=== PATIENT | male | born 1985 | race Caucasian/White ===

== ENCOUNTER 2017-08-21 14:36 | Inpatient (IN) ==
[2017-08-21] MEDS ORDERED: 0.9 % Sodium Chloride 1,000 ML IVC ONE ×3 (14:48→15:54)
--- NOTE | 2017-08-21 15:05 | Emergency Department Note ---
Disposition Clinical Impression: Cellulitis of scrotum Disposition: Admitted As Inpatient Condition: Good Male Urogenital HPI - General Chief complaint: ED Urogenital-Male Stated complaint: Left scrotal abscess and cellulitis Time Seen by Provider: 08/21/17 14:47 Source: patient Mode of arrival: ambulatory Limitations: no limitations Nursing Notes Reviewed: Yes Vital Signs Reviewed: Yes - History of Present Illness HPI Narrative: Patient presents to the ED with the chief complaint of an abscess on his scrotum. Patient has diabetes and states about 4 days ago he noticed a lump on his scrotum. States that he took one of his diabetic lancets and poked the area. 2 days later he noticed fairly significant increase in pain, swelling, redness and drainage. No fever, chills, chest pain, shortness of breath, abdominal pain, nausea, vomiting or diarrhea. States it is spreading down towards his buttock. Went to urgent care today and was told to come here for urology follow-up. Potentially. Patient states it is difficult for him to sit and move his leg. Otherwise states he feels fine. Had one of these a few years ago that did require drainage. - Related Data Home Medications Medication Instructions Recorded Confirmed Albuterol Sulfate [Proair Hfa] 1 - 2 puff IH Q6H PRN 10/13/16 08/21/17 Furosemide [Lasix] 20 mg PO QAM 10/13/16 08/21/17 Ibuprofen [Motrin] 800 mg PO Q8HR PRN 10/13/16 08/21/17 Insulin ASPART [NovoLOG] 2 - 10 unit SQ TIDWM 10/13/16 08/21/17 Insulin Glargine [Lantus] 160 unit SQ DAILY 10/13/16 08/21/17 Lisinopril-HCTZ 20-12.5 [Prinzide 1 tab PO QAM 10/13/16 08/21/17 20-12.5] Meloxicam [Mobic] 7.5 mg PO DAILY 10/13/16 08/21/17 Montelukast [Singulair] 10 mg PO DAILY 10/13/16 08/21/17 Cetirizine HCl [Zyrtec] 10 mg PO DAILY 11/09/16 08/21/17 Allergies Allergy/AdvReac Type Severity Reaction Status Date / Time Amoxicillin Allergy Hives Verified 08/21/17 14:41 Penicillins Allergy Hives Verified 08/21/17 14:41 Sulfa (Sulfonamide Allergy Hives Verified 08/21/17 14:41 Antibiotics) All systems ED: reviewed and negative except as stated. Constitutional: Denies: fever Cardiovascular: Denies: chest pain Respiratory: Denies: dyspnea Gastrointestinal: Denies: abdominal pain, vomiting Genitourinary: Reports: as per HPI. Denies: dysuria Musculoskeletal: Denies: back pain Integumentary: Reports: rash Neurological: Denies: headache Past Medical History - Past Medical History Attestation: Yes The following information was validated with the patient. Source: patient Medical history: Reports: asthma, diabetes, hyperlipidemia, hypertension Psychiatric history: Reports: no psych history - Social History Smoking Status: Current every day smoker Smokeless Tobacco Status: No Alcohol use: Reports: none Drug use: Reports: none Physical Exam - General Limitations: no limitations General appearance: alert, in no apparent distress - Chest Chest inspection: Present: normal inspection, symmetric chest wall rise - Respiratory Respiratory exam: Present: normal lung sounds bilaterally - Cardiovascular Cardiovascular exam: Present: regular rate, normal rhythm, normal heart sounds - Abdominal Exam Abdominal Exam: Present: soft, Non-Tender, normal bowel sounds - Male exam: Present: normal testicular lie, other (Patient has a large fairly well- circumscribed abscess to his left scrotum extending down towards his perineum. There is a centralized area of ulceration with no active drainage. Indurated with no fluctuance. Surrounding cellulitis. No signs of ischemia.). Absent: perineal induration, testicular tenderness - Neurological Exam Neurological exam: Present: alert, oriented X3, normal gait - Psychiatric Psychiatric exam: Present: normal affect, normal mood Course Course Narrative: Patient presenting with a left scrotal abscess 4 days. Patient slightly tachycardic sent over from urgent care. Low concern over Yasir's gangrene. However, we will obtain labs and CT pelvis with IV contrast. - Reevaluation(s) Reevaluation #1: Has a cellulitis with no obvious abscess. No free gas. Consult with urology and they are aware of the patient. Agreed with antibiotic choice. Vital Signs Temperature 98.3 F 08/21/17 14:41 Pulse Rate 118 08/21/17 14:41 Respiratory Rate 20 08/21/17 14:41 Blood Pressure 141/88 08/21/17 14:41 O2 Sat by Pulse Oximetry 96 08/21/17 14:41 Temperature 98.3 F 08/21/17 14:41 Pulse Rate 87 08/21/17 16:56 Respiratory Rate 18 08/21/17 17:50 Blood Pressure 136/91 08/21/17 17:50 O2 Sat by Pulse Oximetry 98 08/21/17 16:56 Oxygen Delivery Oxygen Delivery Room Air Urogenital-Male - Lab Data Result diagrams: 08/21/17 15:01 08/21/17 15:01 Lab Results 08/21/17 08/21/17 08/21/17 Range/Units 15:01 15:01 15:01 WBC 12.6 H (4.3-11.1) K/mcL RBC 4.68 (4.19-5.50) M/mcL Hgb 13.6 (12.9-16.9) g/dL Hct 39.2 (37.5-50.1) % MCV 83.8 (83.0-100.0) fL MCH 29.1 (28.0-33.3) pg MCHC 34.7 (31.6-35.5) g/dL RDW 11.8 (11.5-14.5) % Plt Count 383 (140-400) K/mcL MPV 9.5 (9.4-12.4) fL Immature Gran % 0.5 (0-4) % Seg Neutrophils % 68.9 % Lymphocytes % 20.0 % Monocytes % 7.0 % Eosinophils % 3.0 % Basophils % 0.6 % Neutrophils # 8.7 (1.6-8.9) K/mcL Lymphocytes # 2.5 (0.6-4.6) K/mcL Monocytes # 0.9 (0.0-1.3) K/mcL Eosinophils # 0.4 (0.0-0.6) K/mcL Basophils # 0.1 (0.0-0.2) K/mcL Sodium 135 L (136-145) mEq/L Potassium 4.1 (3.5-4.5) mEq/L Chloride 99 (98-109) mEq/L Carbon Dioxide 24 (19-29) mEq/L BUN 18 (8-26) mg/dL Creatinine 1.17 (0.72-1.25) mg/dL Est GFR ( Amer) > 60 (> 60) Est GFR (Non-Af Amer) > 60 (> 60) BUN/Creatinine Ratio 15 (6-26) Glucose 468 H (70-99) mg/dL Calculated Osmolality 302 H (280-300) Lactic Acid 3.4 H (0.5-2.2) mmol/L Calcium 9.5 (8.6-10.8) mg/dL C-Reactive Protein 49 H (Less than 5) mg/L Ur Specimen Adequacy Urine Color (Yellow) Urine Clarity (Clear) Urine pH (5.0-8.0) pH Units Ur Specific [place] (1.010-1.025) Urine Protein (Neg-Trace) mg/dL Urine Glucose (UA) (Normal) mg/dL Urine Ketones (Negative) mg/dL Urine Blood (Negative) Urine Nitrite (Negative) Urine Bilirubin (Negative) Urine Urobilinogen (Normal) mg/dL Ur Leukocyte Esterase (Negative) Urine Microscopic RBC (0-3) per hpf Urine Microscopic WBC (0-3) per hpf Ur Squamous Epith Cells (None-Few) per lpf Urine Bacteria (None-Few) per hpf Hyaline Casts (None-Few) per lpf Ur Culture Indicated? (NO) 08/21/17 Range/Units 15:20 WBC (4.3-11.1) K/mcL RBC (4.19-5.50) M/mcL Hgb (12.9-16.9) g/dL Hct (37.5-50.1) % MCV (83.0-100.0) fL MCH (28.0-33.3) pg MCHC (31.6-35.5) g/dL RDW (11.5-14.5) % Plt Count (140-400) K/mcL MPV (9.4-12.4) fL Immature Gran % (0-4) % Seg Neutrophils % % Lymphocytes % % Monocytes % % Eosinophils % % Basophils % % Neutrophils # (1.6-8.9) K/mcL Lymphocytes # (0.6-4.6) K/mcL Monocytes # (0.0-1.3) K/mcL Eosinophils # (0.0-0.6) K/mcL Basophils # (0.0-0.2) K/mcL Sodium (136-145) mEq/L Potassium (3.5-4.5) mEq/L Chloride (98-109) mEq/L Carbon Dioxide (19-29) mEq/L BUN (8-26) mg/dL Creatinine (0.72-1.25) mg/dL Est GFR ( Amer) (> 60) Est GFR (Non-Af Amer) (> 60) BUN/Creatinine Ratio (6-26) Glucose (70-99) mg/dL Calculated Osmolality (280-300) Lactic Acid (0.5-2.2) mmol/L Calcium (8.6-10.8) mg/dL C-Reactive Protein (Less than 5) mg/L Ur Specimen Adequacy See below A Urine Color Yellow (Yellow) Urine Clarity Clear (Clear) Urine pH 6.0 (5.0-8.0) pH Units Ur Specific [place] > 1.030 H (1.010-1.025) Urine Protein Trace (Neg-Trace) mg/dL Urine Glucose (UA) >=1000 H (Normal) mg/dL Urine Ketones Trace H (Negative) mg/dL Urine Blood Negative (Negative) Urine Nitrite Negative (Negative) Urine Bilirubin Negative (Negative) Urine Urobilinogen Normal (Normal) mg/dL Ur Leukocyte Esterase Negative (Negative) Urine Microscopic RBC 0-3 (0-3) per hpf Urine Microscopic WBC 0-3 (0-3) per hpf Ur Squamous Epith Cells None Seen (None-Few) per lpf Urine Bacteria None Seen (None-Few) per hpf Hyaline Casts None Seen (None-Few) per lpf Ur Culture Indicated? NO (NO)
[2017-08-21 15:08] LABS: Basophils # 0.1 K/mcL (0.0-0.2); Basophils % 0.6 %; Eosinophils # 0.4 K/mcL (0.0-0.6); Hematocrit 39.2 % (37.5-50.1); Hemoglobin 13.6 g/dL (12.9-16.9); Immature Granulocytes % 0.5 % (0-4); Lymphocytes # 2.5 K/mcL (0.6-4.6); Mean Corpuscular HGB Conc 34.7 g/dL (31.6-35.5); Mean Corpuscular Hemoglobin 29.1 pg (28.0-33.3); Mean Corpuscular Volume 83.8 fL (83.0-100.0); Mean Platelet Volume 9.5 fL (9.4-12.4); Monocytes # 0.9 K/mcL (0.0-1.3); Neutrophils # 8.7 K/mcL (1.6-8.9); Platelet Count 383 K/mcL (140-400); Red Blood Count 4.68 M/mcL (4.19-5.50); Red Cell Distribution Width 11.8 % (11.5-14.5); Segmented Neutrophils % 68.9 %
[2017-08-21 15:20] LABS: BUN/Creatinine Ratio 15 (6-26); Blood Urea Nitrogen 18 mg/dL (8-26); C-Reactive Protein 49 mg/L (Less than 5); Calcium 9.5 mg/dL (8.6-10.8); Carbon Dioxide 24 mEq/L (19-29); Chloride 99 mEq/L (98-109); Glucose 468 mg/dL (70-99); Osmolality,Calculated 302 (280-300); Potassium 4.1 mEq/L (3.5-4.5); Sodium 135 mEq/L (136-145); eGFR For African Americans > 60 (> 60); eGFR For Non-African Americans > 60 (> 60)
--- NOTE | 2017-08-21 15:39 | Emergency Department Note ---
START Narrative - START START: I examined this patient and my medical decision-making was reviewed with the Resident Physician. I agree with the documented findings, disposition and treatment plan as described except to the extent set forth below. +scrotal abscess. labs, ct, eval I and D, antibiotics does not appear septic no signs of rectal abscess. isolated to scrotum vss afebrile
[2017-08-21 15:40] LABS: Bilirubin,Urine Negative (Negative); Blood,Urine Negative (Negative); Clarity,Urine Clear (Clear); Color,Urine Yellow (Yellow); Glucose,Urine (UA) >=1000 mg/dL (Normal); Ketones,Urine Trace mg/dL (Negative); Leukocyte Esterase,Urine Negative (Negative); Nitrite,Urine Negative (Negative); Protein,Urine Trace mg/dL (Neg-Trace); Specific Gravity,Urine > 1.030 (1.010-1.025); Urobilinogen,Urine Normal (Normal)
[2017-08-21 15:46] LABS: Bacteria,Urine None Seen per hpf (None-Few); Hyaline Casts,Urine None Seen per lpf (None-Few); RBC,Urine 0-3 per hpf (0-3); Squamous Epithelial Cell,Urine None Seen per lpf (None-Few); WBC,Urine 0-3 per hpf (0-3)
[2017-08-21] MEDS ORDERED: Insulin Human Regular 10 UNIT in 0.9 % Sodium Chloride 10 ML IV ONE (16:25)
[2017-08-21] MEDS ORDERED: Vancomycin 1,750 MG in D5% in Water 500 ML IVPB ONE (17:01)
[2017-08-21] MEDS ORDERED: Levofloxacin 750 MG/150 ML 750 MG/150 ML BAG IVPB ONE (17:03)
[2017-08-21] MEDS ORDERED: *HR* Dextrose 50 % in Water (Syg) 50 ML SYRINGE IVP PRN (20:35)
[2017-08-21] MEDS ORDERED: D5% in Water 1,000 ML IVC PRN (20:35)
[2017-08-21] MEDS ORDERED: Dextrose Gel 15 GM PO PRN ×2 (20:35)
[2017-08-21] MEDS ORDERED: Naloxone 0.4 MG/ML INJ IVP PRN (21:35)
[2017-08-21] MEDS ORDERED: Vancomycin 1,750 MG in D5% in Water 250 ML IVPB SCH (22:00)
--- NOTE | 2017-08-21 22:06 | Internal Med History&Physical ---
<GiangentrycoreenTao medina - Last Filed: 08/21/17 23:22> Date of Encounter: 08/21/17 Time of Encounter: 20:30 Assessment and Plan (1) Sepsis Current visit: Yes Status: Acute Patient presents with SIRS criteria of WBC of 12.6 and HR of 98 bpm. Patient receiving boluses of IV 0.9 NS to be followed by 125 mL/HR. Suspected infection source is cellulitis of left scrotum. Lactic acid 3.4 on admission. Will order lactic acid stat + timed. Blood cultures x2. Wound cultures ordered. IVPB vancomycin with pharmacy dosing and Zosyn 3.375 gm Q8 ordered for infection coverage for cellulitis. Creatinine and platelets WNL. Bilirubin ordered. Patient is currently afebrile. F/u labs ordered. Patient placed on continuous cardiac telemetry and supplemental O2. Will monitor patient for signs of increasing infection, cardiac, and/or respiratory distress. Mr. Thacker is at high risk for sepsis and further morbidity based on current symptoms, cellulitis , history and risk factors and will be placed as inpatient. Qualifiers: Sepsis type: sepsis due to unspecified organism Qualified Code(s): A41.9 - Sepsis, unspecified organism (2) Cellulitis of scrotum Current visit: Yes Status: Acute Patient reports acute pain and swelling in the left scrotal area for the past 4 days. Patient attempted to open wound 4 days ago and squeeze contents but swelling and pain increased two days later. CT of the abdomen and pelvis today shows findings compatible with cellulitis involving the left hemiscrotum and inferior perineum. No discrete rim-enhancing collection to suggest abscess. No evidence of subcutaneous emphysema. Ultrasound of the scrotum today shows no sonographic evidence of testicular torsion. Slight hypervascularity of the left epididymis. Correlation for acute inflammation is recommended. Subcutaneous edema and skin thickening of the left scrotum. No focal subcutaneous fluid collection. Wound culture ordered. Wound Care consult and daily wound care ordered. IVPB vancomycin with pharmacy dosing and Zosyn 3.375 Q8 for infection coverage. Patient to be monitored for allergic rxn to Zosyn d/ t allergy w/hives with penicillin. Benadryl 25 mg ordered. Will monitor f/u labs. (3) Hyponatremia Current visit: Yes Status: Acute Patient presents with sodium level of 135 on admission. Patient receiving IV 0.9 NS fluids per sepsis protocol which should correct hyponatremia. Will monitor sodium level in f/u labs. (4) Diabetes Current visit: Yes Status: Chronic Hx of chronic diabetes controlled with insulin. Patient states that he takes 160 units HS but has not had his insulin for 4 days due to lack of insurance. Pharmacy recommendation was 80 mg BID so patient's BG doesn't bottom out. Will administer 80 mg BID and add high-dose correction insulin sliding scale with hypoglycemic protocol. Associate Professor Of Theology consult ordered. A1c in a.m. labs. Patient reports having seizures in past due to hypoglycemia. Seizure precautions ordered. Will monitor patient closely. Qualifiers: Diabetes mellitus type: type 2 Diabetes mellitus complication status: with unspecified complications Diabetes mellitus shelter insulin use: with shelter use Qualified Code(s): E11.8 - Type 2 diabetes mellitus with unspecified complications; Z79.4 - [facility] (current) use of insulin; Z79.4 - [facility] ( current) use of insulin; Z79.4 - rat exterminator (current) use of insulin; Z79.4 - rat exterminator (current) use of insulin (5) Asthma Current visit: Yes Status: Chronic Hx of chronic asthma that is currently stable. We will continue patient's Singulair and Pro Air. Qualifiers: Asthma severity: mild Asthma persistence: intermittent Asthma complication type: uncomplicated Qualified Code(s): J45.20 - Mild intermittent asthma, uncomplicated (6) HTN (hypertension) Current visit: Yes Status: Chronic Hx of chronic HTN. Monitor patient and VS. Will continue lisinopril HCTZ. Qualifiers: Hypertension type: essential hypertension Qualified Code(s): I10 - Essential (primary) hypertension (7) HLD (hyperlipidemia) Current visit: Yes Status: Chronic Hx of chronic HLD. Lipid panel ordered in a.m. labs. Patient does not currently take a statin. Will consider adding Lipitor based on lipid panel results. Qualifiers: Hyperlipidemia type: pure hypercholesterolemia Qualified Code(s): E78.00 - Pure hypercholesterolemia, unspecified; E78.0 - Pure hypercholesterolemia (8) DVT prophylaxis Current visit: Yes Status: Acute Lovenox 40 mg SQ 0600 for DVT prophylaxis. Internal Medicine - H&P: HPI Chief complaint: Scrotal swelling Admitted From: Emergency Dept Plans for Post Hospital Care: Home History of present illness: Mr. Thacker is a 32 year old male with medical history of asthma, diabetes controlled by insulin, hyperlipidemia, hypertension, and GERD presents from the ED with chief complaint of scrotal swelling on the left side for the past 4 days. Patient reports he noticed a lump partially 4 days ago on his scrotum and opened the wound with a diabetic lancet. 2 days later the wound became larger and more painful. He states it began spreading down towards his perineum. Went to urgent care where he was directed to come to the ED. States he had one several years ago that required drainage. Patient denies recent illness, chest pain, palpitations, fever, chills, vomiting, nausea, headache, changes in vision, abdominal pain, numbness, tingling, neurological deficits, weakness, lightheadedness, dizziness, unusual bleeding, syncope, or syncope. Past Med Surg Social Fam HX - Past Medical History Source: patient, old records reviewed, obtained from family Medical history: asthma, diabetes, GERD, hyperlipidemia, hypertension Psychiatric history: no psych history - Past Surgical History Surgical History: other (Bilateral laser eye surgery) - Social History Smoking Status: Former smoker Packs per day: 1 PPD - Reports quitting 6 months ago Smokeless Tobacco Status: No Alcohol use: none Drug use: none Current living situation: Home, With Family Activity Level: Independent ambulation Recent Out of Country Travel Within the Last 8 Weeks: No Exposure or Possible Exposure to Illness During Travel: No - Family History Father Race: Family Member Ethnicity: Non- Living Status: Still Living Hx Family Cancer: Yes (Kidney) Mother Race: Family Member Ethnicity: Non- Living Status: Age at : 54 Cause of : [place] Hx Family Cardiac Disorders: Yes ([place], CAD, HTN) Brother Race: Family Member Ethnicity: Non- Living Status: Still Living Hx Family Endocrine Disorder: Yes (DM) Internal Medicine - H&P: Meds Albuterol Sulfate [Proair Hfa] 1 - 2 puff IH Q6H PRN 10/13/16 [History] Furosemide [Lasix] 20 mg PO QAM 10/13/16 [History] Ibuprofen [Motrin] 800 mg PO Q8HR PRN 10/13/16 [History] Insulin ASPART [NovoLOG] 2 - 10 unit SQ TIDWM 10/13/16 [History] Insulin Glargine [Lantus] 160 unit SQ DAILY 10/13/16 [History] Lisinopril-HCTZ 20-12.5 [Prinzide 20-12.5] 1 tab PO QAM 10/13/16 [History] Meloxicam [Mobic] 7.5 mg PO DAILY 10/13/16 [History] Montelukast [Singulair] 10 mg PO DAILY 10/13/16 [History] Cetirizine HCl [Zyrtec] 10 mg PO DAILY 11/09/16 [History] 3 Allergy/AdvReac Type Severity Reaction Status Date / Time Amoxicillin Allergy Hives Verified 08/21/17 14:41 Penicillins Allergy Hives Verified 08/21/17 14:41 Sulfa (Sulfonamide Allergy Hives Verified 08/21/17 14:41 Antibiotics) All Systems PM: A 10-system review of systems was performed and is negative for pertinent findings except as documented above in the HPI. - Constitutional Constitutional: no chills, no fever(s), no night sweats - EENT Eyes: no change in vision, no discharge, no pain, no photophobia Ears: no ear discharge, no ear pain, no tinnitus Nose, mouth and throat: no dysphagia, no nasal discharge, no neck pain, no sore throat - Breasts Breasts: as per HPI - Cardiovascular Cardiovascular ROS IM: no chest pain, no diaphoresis, no dyspnea, no lightheadedness, no palpitations, no syncope - Respiratory Respiratory: no cough, no dyspnea, no wheezing, no excessive phlegm production - Gastrointestinal Gastrointestinal: as per HPI, heartburn - Genitourinary Genitourinary ROS male: as per HPI, scrotal swelling - Musculoskeletal Musculoskeletal ROS IM: no numbness, no tingling - Integumentary Integumentary IM: as per HPI, sores (Left scrotal area), no rash, no unusual bruising - Neurological Neurological ROS: no confusion, no convulsions, no focal weakness, no numbness, no tingling, no tremor(s) - Psychiatric Psychiatric: as per HPI - Endocrine Endocrine IM: as per HPI - Hematologic/Lymphatic Hematologic/Lymphatic: no easy bruising - Allergic/Immunologic Allergic/Immunologic: as per HPI - Constitutional Vitals: Temp Pulse Resp BP Pulse Ox 97.6 F 92 15 144/96 96 08/21/17 19:20 08/21/17 19:20 08/21/17 19:20 08/21/17 19:20 08/21/17 19:20 General appearance: Present: cooperative, mild distress (Pain in scrotal area), A&O X 3, pleasant, obese, answers questions appropriately - Head Head exam: Present: atraumatic, normocephalic - Eye Eye exam: Present: PERRL, conjuntiva pink, sclera anicteric Pupils: Present: PERRL - ENT ENT exam: Present: normal exam, normal external ear exam - Neck Neck exam general surgery: Present: normal inspection, supple, trachea midline. Absent: lymphadenopathy - Respiratory Respiratory exam: Present: CTAB. Absent: accessory muscle use, rales, rhonchi, wheezes - Cardiovascular Cardiovascular exam: Present: RRR, +S1, +S2. Absent: diastolic murmur, gallop, rubs, systolic murmur - GI/Abdominal GI/Abdominal exam: Present: normal bowel sounds, soft, no peritoneal signs. Absent: distended, tenderness - Rectal Rectal exam: Present: deferred - exam: Present: scrotal swelling External exam: Present: swelling (Swelling in groin area with area that has white head and large, painful swelling under surface) - Extremities Exam Extremities exam: Present: pedal edema, warm, radial pulses palpable and symmetrical - Back Exam Back exam: Present: normal inspection - Neurological Exam Neurological exam: Present: CN II-XII intact, oriented X3, no focal deficits. Absent: pronater drift, facial droop, speech deficit - Psychiatric Psychiatric exam: Present: normal affect, normal mood - Skin Skin exam: Present: dry, intact Internal Med - H&P Results - Labs CBC & Chem 7: 08/21/17 15:01 08/21/17 15:01 - Diagnostic Studies Other Images Additional comments: Impressions Scrotum Ultrasound 08/21/17 17:19 IMPRESSION: No sonographic evidence of testicular torsion. Slight hypervascularity of left epididymis. Correlation for acute inflammation is recommended. Subcutaneous edema and skin thickening of the left scrotum. No focal subcutaneous fluid collection. D/ / Tahira Perez Cha, MD / Tahira Perez Cha, MD Interpreting Provider: Tahira Perez Cha, MD CT scan - abdomen Additional comments: Impressions Abdomen/Pelvis CT 08/21/17 15:33 IMPRESSION: Findings compatible with cellulitis involving the left hemiscrotum and inferior perineum. No discrete rim enhancing collection to suggest abscess. No evidence of subcutaneous emphysema. Coronary artery disease significant for age. Diffuse hepatic steatosis. Stable unusually numerous lymph nodes in the upper abdomen and retroperitoneum. RECOMMENDATIONS: If there is clinical concern for scrotal or testicular pathology, consider further evaluation with ultrasound imaging. D/ / Omer Hagan MD / Omer Hagan MD Interpreting Provider: Omer Hagan MD <Kandice Ureña - Last Filed: 08/22/17 02:09> Date of Encounter: 08/21/17 Internal Medicine - H&P: HPI History of present illness: Mr. Thacker is a 32 year old male All Systems PM: A 10-system review of systems was performed and is negative for pertinent findings except as documented above in the HPI. - Constitutional Vitals: Temp Pulse Resp BP Pulse Ox 98.1 F 91 17 125/78 96 08/21/17 23:49 08/21/17 23:49 08/21/17 23:49 08/21/17 23:49 08/21/17 23:49 Internal Med - H&P Results - Labs CBC & Chem 7: 08/21/17 15:01 08/21/17 15:01 Labs: Liver Function 08/21/17 Range/Units 23:40 Total Bilirubin 0.8 (0.2-1.2) mg/dL - Attending Attestation Patient was seen and examined personally on August 21. He has come in with the scrotal swelling for a few days. Left scrotum examined and it is slightly red and area of darkish discoloration mimics a punctum but I could not express any discharge S patient is quite tender. Testicles are nontender and movable but left epididymis is swollen and quite tender. I suspect left epididymitis and the scrotal bag cellulitis. Patient has diabetes. IV antibiotic is started urology is consulted for the morning
[2017-08-21] MEDS: Insulin LISPRO 300 UNITS/3 ML VIAL SQ SCH (22:20)
[2017-08-21] MEDS: Pantoprazole 40 MG VIAL IVP SCH (22:20)
[2017-08-21] MEDS: 0.9 % Sodium Chloride 1,000 ML IVC SCH (22:20)
[2017-08-21] MEDS: Piperacillin/Tazobactam 3.375 GM in D5% in Water (Mini-Bag+) 100 ML IVPB SCH (23:53)
[2017-08-22] MEDS: Insulin LISPRO 300 UNITS/3 ML VIAL SQ SCH ×6 (00:19→21:35)
[2017-08-22] MEDS: Acetaminophen 325 MG TABLET PO PRN ×2 (04:31→17:03)
[2017-08-22 05:24] LABS: Basophils # 0.1 K/mcL (0.0-0.2); Basophils % 0.7 %; Eosinophils # 0.5 K/mcL (0.0-0.6); Hemoglobin 12.3 g/dL (12.9-16.9); Immature Granulocytes % 0.3 % (0-4); Lymphocytes % 25.3 %; Mean Corpuscular HGB Conc 34.2 g/dL (31.6-35.5); Mean Corpuscular Hemoglobin 28.9 pg (28.0-33.3); Mean Corpuscular Volume 84.5 fL (83.0-100.0); Monocytes # 0.9 K/mcL (0.0-1.3); Monocytes % 7.9 %; Neutrophils # 7.2 K/mcL (1.6-8.9); Platelet Count 333 K/mcL (140-400); Red Blood Count 4.26 M/mcL (4.19-5.50); Red Cell Distribution Width 11.9 % (11.5-14.5); Segmented Neutrophils % 61.8 %
[2017-08-22 05:36] LABS: INR 1.1; Prothrombin Time 12.4 Seconds (9.4-12.1)
[2017-08-22 05:38] LABS: Activated Partial Thrombo Time 30.3 Seconds (26.0-36.0)
[2017-08-22 05:40] LABS: Alanine Aminotransferase 27 Units/L (0-55); Albumin 3.2 g/dL (3.5-5.0); Albumin/Globulin Ratio 0.8 (1.1-2.2); Alkaline Phosphatase 104 Units/L (38-126); Aspartate Amino Transferase 17 Units/L (5-34); BUN/Creatinine Ratio 16 (6-26); Bilirubin,Direct 0.3 mg/dL (0.0-0.5); Bilirubin,Indirect 0.5 mg/dL (0.0-1.2); Bilirubin,Total 0.8 mg/dL (0.2-1.2); Blood Urea Nitrogen 15 mg/dL (8-26); Calcium 8.6 mg/dL (8.6-10.8); Carbon Dioxide 22 mEq/L (19-29); Chloride 103 mEq/L (98-109); Chol/HDL Ratio 7.7 (0-4.9); Cholesterol 178 mg/dL (< 200); Globulin 4.2 g/dL (2.4-3.5); Glucose 292 mg/dL (70-99); HDL Cholesterol 23 mg/dL (40-59); LDL Cholesterol,Calculated 81 mg/dL (0-99); Magnesium 1.9 mg/dL (1.6-2.6); Osmolality,Calculated 290 (280-300); Potassium 3.6 mEq/L (3.5-4.5); Sodium 134 mEq/L (136-145); Total Protein 7.4 g/dL (6.0-8.3); Triglycerides 369 mg/dL (< 150); eGFR For African Americans > 60 (> 60); eGFR For Non-African Americans > 60 (> 60)
[2017-08-22 05:47] LABS: Hemoglobin A1C 7.6 %
[2017-08-22] MEDS: *HR* Enoxaparin 40 MG/0.4 ML SYRINGE SQ SCH (06:03)
--- NOTE | 2017-08-22 07:22 | Urology - Consult Note ---
Date of Encounter: 08/22/17 Time of Encounter: 07:20 - Assessment and Plan (1) Scrotal abscess Current Visit: Yes Status: Acute Assessment and plan: 32-year-old man with a history of a left hemiscrotal abscess. I recommend proceeding with a bedside incision and drainage. He was informed of the risks of the procedure which include but are not limited to bleeding, infection, injury to structures, need for further procedures, pain, and cosmesis issues. He is willing to proceed. We will continue him on broad-spectrum antibiotic. Urology CN:LJ Consult date: 08/22/17 Reason for consult Urology: Other (scrotal abscess) History of present illness: 32-year-old man with a history of diabetes presents with concern for scrotal cellulitis and possible abscess. He reports having a small pustule in his scrotum and lanced it with his diabetes lancet. Later, he developed erythema to the scrotum and came to the emergency department. He has had difficulty obtaining his diabetic medication. He denies any fevers or chills but is having left hemiscrotal pain. He has been admitted for IV antibiotic. Past Med Surg Social Fam HX - Past Medical History Medical history: asthma, diabetes, GERD, hyperlipidemia, hypertension Psychiatric history: no psych history - Past Surgical History Surgical History: other (Bilateral laser eye surgery) - Social History Smoking Status: Former smoker Packs per day: 1 PPD - Reports quitting 6 months ago Smokeless Tobacco Status: No Alcohol use: none Drug use: none - Family History Father Race: Family Member Ethnicity: Non- Living Status: Still Living Hx Family Cancer: Yes (Kidney) Mother Race: Family Member Ethnicity: Non- Living Status: Age at : 54 Cause of : [place] Hx Family Cardiac Disorders: Yes ([place], CAD, HTN) Brother Race: Family Member Ethnicity: Non- Living Status: Still Living Hx Family Endocrine Disorder: Yes (DM) Medications and Allergies Albuterol Sulfate [Proair Hfa] 1 - 2 puff IH Q6H PRN 10/13/16 [History] Furosemide [Lasix] 20 mg PO QAM 10/13/16 [History] Ibuprofen [Motrin] 800 mg PO Q8HR PRN 10/13/16 [History] Insulin ASPART [NovoLOG] 2 - 10 unit SQ TIDWM 10/13/16 [History] Insulin Glargine [Lantus] 160 unit SQ DAILY 10/13/16 [History] Lisinopril-HCTZ 20-12.5 [Prinzide 20-12.5] 1 tab PO QAM 10/13/16 [History] Meloxicam [Mobic] 7.5 mg PO DAILY 10/13/16 [History] Montelukast [Singulair] 10 mg PO DAILY 10/13/16 [History] Cetirizine HCl [Zyrtec] 10 mg PO DAILY 11/09/16 [History] 3 Allergy/AdvReac Type Severity Reaction Status Date / Time Amoxicillin Allergy Hives Verified 08/21/17 14:41 Penicillins Allergy Hives Verified 08/21/17 14:41 Sulfa (Sulfonamide Allergy Hives Verified 08/21/17 14:41 Antibiotics) Review of Systems - Constitutional no chills, no fever(s) - EENT Nose, mouth and throat: no dizziness - Cardiovascular no chest pain - Respiratory no dyspnea - Gastrointestinal no nausea, no vomiting - Genitourinary testicular pain, no flank pain, no hematuria - Musculoskeletal no back pain - Integumentary erythema, rash - Neurological no weakness - Psychiatric no suicidal ideation - Hematologic/Lymphatic no easy bleeding - Allergic/Immunologic no wheezing Exam Initial Vital Signs Temp Pulse Resp BP Pulse Ox 98.3 F 118 20 141/88 96 08/21/17 14:41 08/21/17 14:41 08/21/17 14:41 08/21/17 14:41 08/21/17 14:41 - General physical appearance Present: well developed, well nourished, no distress - Eyes Absent: icteric - ENT Present: normal mucosa - Neck Present: no masses - Respiratory Present: normal respiratory effort - Cardiovascular Cardiovascular exam IM: RRR - Abdomen Abdomen: Present: soft, non tender - Genitourinary other (Scrotal erythema with an area of fluctuance lateral and inferior to the left hemiscrotum. There is purulence emanating from a small sinus tract.) Urology Results - Labs 08/22/17 04:27 08/22/17 04:27 Abnormal lab results WBC 11.7 K/mcL (4.3-11.1) H 08/22/17 04:27 Hgb 12.3 g/dL (12.9-16.9) L 08/22/17 04:27 Hct 36.0 % (37.5-50.1) L 08/22/17 04:27 PT 12.4 Seconds (9.4-12.1) H 08/22/17 04:27 Sodium 134 mEq/L (136-145) L 08/22/17 04:27 Glucose 292 mg/dL (70-99) H 08/22/17 04:27 POC Glucose 244 (58-89) H 08/21/17 19:24 Hemoglobin A1c 7.6 % (-5.6) H 08/22/17 04:27 Lactic Acid 3.1 mmol/L (0.5-2.2) H 08/21/17 23:40 C-Reactive Protein 49 mg/L (Less than 5) H 08/21/17 15:01 Albumin 3.2 g/dL (3.5-5.0) L 08/22/17 04:27 Globulin 4.2 g/dL (2.4-3.5) H 08/22/17 04:27 Albumin/Globulin Ratio 0.8 (1.1-2.2) L 08/22/17 04:27 Triglycerides 369 mg/dL (< 150) H 08/22/17 04:27 VLDL Cholesterol, Calc 74 mg/dL (< 31) H 08/22/17 04:27 HDL Cholesterol 23 mg/dL (40-59) L 08/22/17 04:27 Cholesterol/HDL Ratio 7.7 (0-4.9) H 08/22/17 04:27 Ur Specimen Adequacy See below A 08/21/17 15:20 Ur Specific [place] > 1.030 (1.010-1.025) H 08/21/17 15:20 Urine Glucose (UA) >=1000 mg/dL (Normal) H 08/21/17 15:20 Urine Ketones Trace mg/dL (Negative) H 08/21/17 15:20 Diabetes panel 08/22/17 08/22/17 Range/Units 04:27 04:27 Sodium 134 L (136-145) mEq/L Potassium 3.6 (3.5-4.5) mEq/L Chloride 103 (98-109) mEq/L Carbon Dioxide 22 (19-29) mEq/L BUN 15 (8-26) mg/dL Creatinine 0.95 (0.72-1.25) mg/dL Glucose 292 H (70-99) mg/dL Hemoglobin A1c 7.6 H ( - 5.6) % Calcium 8.6 (8.6-10.8) mg/dL AST 17 (5-34) Units/L ALT 27 (0-55) Units/L Alkaline Phosphatase 104 (38-126) Units/L Albumin 3.2 L (3.5-5.0) g/dL Triglycerides 369 H (< 150) mg/dL HDL Cholesterol 23 L (40-59) mg/dL Calcium panel 08/22/17 Range/Units 04:27 Calcium 8.6 (8.6-10.8) mg/dL Albumin 3.2 L (3.5-5.0) g/dL Pituitary panel 08/22/17 Range/Units 04:27 Sodium 134 L (136-145) mEq/L Potassium 3.6 (3.5-4.5) mEq/L Chloride 103 (98-109) mEq/L Carbon Dioxide 22 (19-29) mEq/L BUN 15 (8-26) mg/dL Creatinine 0.95 (0.72-1.25) mg/dL Glucose 292 H (70-99) mg/dL Calcium 8.6 (8.6-10.8) mg/dL Adrenal panel 08/21/17 08/22/17 Range/Units 23:40 04:27 Sodium 134 L (136-145) mEq/L Potassium 3.6 (3.5-4.5) mEq/L Chloride 103 (98-109) mEq/L Carbon Dioxide 22 (19-29) mEq/L BUN 15 (8-26) mg/dL Creatinine 0.95 (0.72-1.25) mg/dL Glucose 292 H (70-99) mg/dL Calcium 8.6 (8.6-10.8) mg/dL Total Bilirubin 0.8 0.8 (0.2-1.2) mg/dL AST 17 (5-34) Units/L ALT 27 (0-55) Units/L Alkaline Phosphatase 104 (38-126) Units/L Albumin 3.2 L (3.5-5.0) g/dL All other labs normal. - Imaging CT scan - abdomen: report reviewed, image reviewed CT scan - pelvis: report reviewed, image reviewed Consult Discharge Plan - Plan Referrals: Patrice Umana DO [Primary Care Provider] -
[2017-08-22] MEDS: Pantoprazole 40 MG VIAL IVP SCH (08:36)
[2017-08-22] MEDS: Lisinopril-HCTZ 20-12.5mg TABLET PO SCH (08:36)
[2017-08-22] MEDS: Loratadine 10 MG TABLET PO SCH (08:37)
[2017-08-22] MEDS: Piperacillin/Tazobactam 3.375 GM in D5% in Water (Mini-Bag+) 100 ML IVPB SCH ×3 (08:37→23:55)
[2017-08-22] MEDS: Furosemide 20 MG TABLET PO SCH (08:37)
[2017-08-22] MEDS ORDERED: INSULIN GLARGINE SQ SCH (09:00)
[2017-08-22] MEDS ORDERED: Levofloxacin 750 MG/150 ML 750 MG/150 ML BAG IVPB SCH ×2 (09:00→12:00)
--- NOTE | 2017-08-22 10:00 | Urology Procedure Note ---
Date of Encounter: 08/22/17 Time of Encounter: 09:58 Procedures:Urology - Abscess I/D Consent obtained: written consent Site: scrotum Side (if applicable): left Technique: other (10 blade) Irrigation: No Packing used?: iodoform Complications: none, other (The scrotum was prepped and draped in the usual sterile fashion. Local anesthetic using 1% lidocaine was infiltrated in the skin. The abscess sinus was incised using the 10 blade. A small amount of purulent fluid came out. I sent a wound culture. The wound was packed with quarter inch iodoform gauze. He tolerated the procedure well.)
[2017-08-22] MEDS: Insulin DETEMIR 100 UNIT/ML X5UNITS SQ SCH ×2 (10:23→19:52)
[2017-08-22] MEDS: Vancomycin 1,500 MG in D5% in Water 250 ML IVPB SCH ×2 (10:23→20:00)
[2017-08-22] MEDS ORDERED: Aminoglycoside Consult 1 EACH MC ONE (13:59)
[2017-08-22] MEDS: 0.9 % Sodium Chloride 1,000 ML IVC SCH ×3 (14:16→18:56)
--- NOTE | 2017-08-22 15:52 | Internal Med Progress Note ---
<LucasDane dashstephie Patel - Last Filed: 08/22/17 15:50> Date of Encounter: 08/22/17 Time of Encounter: 08:45 - Assessment and plan (1) Sepsis Current Visit: Yes Status: Acute Assessment and plan: Patient with SIRS criteria on admission leukocytosis, tachycardia. -IV fluid patient received a bolus. Currently receiving 125 miles per hour. -Lactic acid 3.4 on admission trending down to 1.8 today. -Vancomycin and Zosyn day 2. -Patient receiving Benadryl as he has a documented history of allergy to penicillin. -Continuous cardiac telemetry and supplemental oxygen. Qualifiers: Sepsis type: sepsis due to unspecified organism Qualified Code(s): A41.9 - Sepsis, unspecified organism (2) Scrotal abscess Current Visit: Yes Status: Acute Assessment and plan: Urology I&D patient's abscess today. -Zosyn and vancomycin day 2. -Follow-up wound culture. -Follow urology recommendations. -Wound care consult and daily wound care management. (3) Cellulitis of scrotum Current Visit: Yes Status: Acute Assessment and plan: See above plan for abscess of scrotum. (4) Diabetes Current Visit: Yes Status: Chronic Assessment and plan: Patient recently noncompliant with insulin due to insurance issues. -We will administer 80 mg twice a day and high-dose correction insulin sliding scale with hypoglycemic protocol. -A1c 7.6. -We will monitor. Qualifiers: Diabetes mellitus type: type 2 Diabetes mellitus complication status: with unspecified complications Diabetes mellitus intermediate manager insulin use: with intermediate manager use Qualified Code(s): E11.8 - Type 2 diabetes mellitus with unspecified complications; Z79.4 - intermediate school teacher (current) use of insulin; Z79.4 - intermediate school teacher ( current) use of insulin; Z79.4 - correction (current) use of insulin; Z79.4 - intermediate school teacher (current) use of insulin (5) Asthma Current Visit: Yes Status: Chronic Assessment and plan: Currently stable. Continue Singulair and pro-air. Qualifiers: Asthma severity: mild Asthma persistence: intermittent Asthma complication type: uncomplicated Qualified Code(s): J45.20 - Mild intermittent asthma, uncomplicated (6) HTN (hypertension) Current Visit: Yes Status: Chronic Assessment and plan: Continue lisinopril and hydrochlorothiazide. -Monitor vital signs. Qualifiers: Hypertension type: essential hypertension Qualified Code(s): I10 - Essential (primary) hypertension (7) HLD (hyperlipidemia) Current Visit: Yes Status: Chronic Assessment and plan: Patient with cholesterol to HDL ratio 7.7 on morning labs -We started patient on 20 mg Lipitor daily. -We will monitor for side effects. Qualifiers: Hyperlipidemia type: pure hypercholesterolemia Qualified Code(s): E78.00 - Pure hypercholesterolemia, unspecified; E78.0 - Pure hypercholesterolemia (8) DVT prophylaxis Current Visit: Yes Status: Acute Assessment and plan: Lovenox subcutaneous - Subjective Interval history: 32-year-old male with past medical history of asthma, diabetes requiring insulin , hyperlipidemia, hypertension, and GERD presents with left scrotal cellulitis. This morning, patient was resting comfortably. His blood cell count was trending downwards. He denies any fevers, chills, shortness of breath, nausea, vomiting, or diarrhea. - Constitutional Vitals: Temp Pulse Resp BP Pulse Ox 98.0 F 83 18 127/84 98 08/22/17 10:58 08/22/17 10:58 08/22/17 15:34 08/22/17 10:58 08/22/17 15:34 General appearance: Present: cooperative, mild distress (Pain in scrotal area), A&O X 3, pleasant, obese, answers questions appropriately - Respiratory Respiratory exam: Present: CTAB. Absent: accessory muscle use, rales, rhonchi, wheezes - Cardiovascular Cardiovascular exam: Present: RRR, +S1, +S2. Absent: diastolic murmur, gallop, rubs, systolic murmur - GI/Abdominal GI/Abdominal exam: Present: normal bowel sounds, soft, no peritoneal signs. Absent: distended, tenderness - exam: Present: testicular tenderness (Left-sided erythema on the inferior lateral portion of the left. No shift. He identified. No fluctuance or induration. There is a central area of ulceration.) - Extremities Exam Extremities exam: Present: warm, radial pulses palpable and symmetrical. Absent : calf tenderness, cyanotic, pedal edema Internal Medicine: Result - Labs CBC & Chem 7: 08/22/17 04:27 08/22/17 04:27 Labs: Short CBC 08/22/17 Range/Units 04:27 WBC 11.7 H (4.3-11.1) K/mcL Hgb 12.3 L (12.9-16.9) g/dL Hct 36.0 L (37.5-50.1) % Plt Count 333 (140-400) K/mcL Neutrophils # 7.2 (1.6-8.9) K/mcL BMP 08/22/17 04:27 Sodium 134 L Potassium 3.6 Chloride 103 Carbon Dioxide 22 BUN 15 Creatinine 0.95 Glucose 292 H Calcium 8.6 Liver Function 08/21/17 08/22/17 Range/Units 23:40 04:27 Total Bilirubin 0.8 0.8 (0.2-1.2) mg/dL Direct Bilirubin 0.3 (0.0-0.5) mg/dL AST 17 (5-34) Units/L ALT 27 (0-55) Units/L Alkaline Phosphatase 104 (38-126) Units/L Albumin 3.2 L (3.5-5.0) g/dL - ABG Interpretation ABG results: PT/INR, D-dimer PT 12.4 Seconds (9.4-12.1) H 08/22/17 04:27 Consult Discharge Plan - Plan Referrals: Patrice Umana DO [Primary Care Provider] - <ElenoAv - Last Filed: 08/22/17 17:39> Date of Encounter: 08/22/17 - Constitutional Vitals: Temp Pulse Resp BP Pulse Ox 98.0 F 88 15 135/84 97 08/22/17 16:56 08/22/17 16:56 08/22/17 16:56 08/22/17 16:56 08/22/17 16:56 Internal Medicine: Result - Labs CBC & Chem 7: 08/22/17 04:27 08/22/17 04:27 Labs: Short CBC 08/22/17 Range/Units 04:27 WBC 11.7 H (4.3-11.1) K/mcL Hgb 12.3 L (12.9-16.9) g/dL Hct 36.0 L (37.5-50.1) % Plt Count 333 (140-400) K/mcL Neutrophils # 7.2 (1.6-8.9) K/mcL BMP 08/22/17 04:27 Sodium 134 L Potassium 3.6 Chloride 103 Carbon Dioxide 22 BUN 15 Creatinine 0.95 Glucose 292 H Calcium 8.6 Liver Function 08/21/17 08/22/17 Range/Units 23:40 04:27 Total Bilirubin 0.8 0.8 (0.2-1.2) mg/dL Direct Bilirubin 0.3 (0.0-0.5) mg/dL AST 17 (5-34) Units/L ALT 27 (0-55) Units/L Alkaline Phosphatase 104 (38-126) Units/L Albumin 3.2 L (3.5-5.0) g/dL - ABG Interpretation ABG results: PT/INR, D-dimer PT 12.4 Seconds (9.4-12.1) H 08/22/17 04:27 - Attending Attestation I saw and examined the patient independently. I have discussed with resident Dr Whipple regarding the management plan. Agree with the documentation. Patient was admitted now for left sided scrotum abscess/cellulitis. Urology consult saw pt and had I/D for the abscess. Patient is still complaining of mild scrotum pain. On Vanco and Zosyn. No fever, vitals are stable now. Continue closely monitor patient.
[2017-08-23] MEDS: 0.9 % Sodium Chloride 1,000 ML IVC SCH (05:28)
[2017-08-23] MEDS: *HR* Enoxaparin 40 MG/0.4 ML SYRINGE SQ SCH (05:29)
[2017-08-23 07:36] LABS: Basophils # 0.1 K/mcL (0.0-0.2); Basophils % 0.9 %; Eosinophils # 0.6 K/mcL (0.0-0.6); Eosinophils % 6.7 %; Hematocrit 36.9 % (37.5-50.1); Hemoglobin 12.5 g/dL (12.9-16.9); Immature Granulocytes % 0.5 % (0-4); Lymphocytes # 2.3 K/mcL (0.6-4.6); Lymphocytes % 25.2 %; Mean Corpuscular HGB Conc 33.9 g/dL (31.6-35.5); Mean Corpuscular Hemoglobin 28.6 pg (28.0-33.3); Mean Corpuscular Volume 84.4 fL (83.0-100.0); Mean Platelet Volume 9.7 fL (9.4-12.4); Monocytes # 0.7 K/mcL (0.0-1.3); Monocytes % 7.8 %; Neutrophils # 5.5 K/mcL (1.6-8.9); Platelet Count 332 K/mcL (140-400); Red Blood Count 4.37 M/mcL (4.19-5.50); Red Cell Distribution Width 11.9 % (11.5-14.5); Segmented Neutrophils % 58.9 %
[2017-08-23 07:48] LABS: Alanine Aminotransferase 27 Units/L (0-55); Albumin 3.2 g/dL (3.5-5.0); Albumin/Globulin Ratio 0.8 (1.1-2.2); Alkaline Phosphatase 99 Units/L (38-126); Aspartate Amino Transferase 19 Units/L (5-34); BUN/Creatinine Ratio 12 (6-26); Bilirubin,Total 0.5 mg/dL (0.2-1.2); Blood Urea Nitrogen 10 mg/dL (8-26); Calcium 8.8 mg/dL (8.6-10.8); Carbon Dioxide 25 mEq/L (19-29); Chloride 107 mEq/L (98-109); Globulin 3.8 g/dL (2.4-3.5); Glucose 103 mg/dL (70-99); Osmolality,Calculated 287 (280-300); Potassium 3.4 mEq/L (3.5-4.5); Sodium 139 mEq/L (136-145); eGFR For African Americans > 60 (> 60); eGFR For Non-African Americans > 60 (> 60)
--- NOTE | 2017-08-23 07:50 | Urology Progress Note ---
Date of Encounter: 08/23/17 Time of Encounter: 07:48 - Assessment and Plan (1) Scrotal abscess Current Visit: Yes Status: Acute Assessment and plan: Postop day #1 status post incision and drainage of scrotal abscess. He is doing well. Continue packing and dressing changes 1-2 times per day with iodoform gauze. Cultures are pending. Urology will follow along. Progress Note Narrative: 32-year-old man with a scrotal abscess. Wound is doing well. His pain is adequately controlled. Cultures are pending. Objective Initial Vital Signs Temp Pulse Resp BP Pulse Ox 98.3 F 118 20 141/88 96 08/21/17 14:41 08/21/17 14:41 08/21/17 14:41 08/21/17 14:41 08/21/17 14:41 - General physical appearance Present: well developed, well nourished, no distress - Respiratory Present: normal respiratory effort - Abdomen Present: soft - Genitourinary Present: other (Erythema and scrotum improved. Induration is stable. Abscess cavity is packed with minimal drainage.) - Labs 08/22/17 04:27 08/22/17 04:27 Consult Discharge Plan - Plan Referrals: Patrice Umana DO [Primary Care Provider] -
[2017-08-23] MEDS ORDERED: Potassium Chloride Elixir 20 MEQ/15 ML UDC PO ONE (08:18)
[2017-08-23 08:27] LABS: Magnesium 1.9 mg/dL (1.6-2.6)
[2017-08-23] MEDS ORDERED: Insulin DETEMIR 100 UNIT/ML X5UNITS SQ SCH (08:30)
[2017-08-23] MEDS: Furosemide 20 MG TABLET PO SCH (08:45)
[2017-08-23] MEDS: Loratadine 10 MG TABLET PO SCH (08:45)
[2017-08-23] MEDS: Lisinopril-HCTZ 20-12.5mg TABLET PO SCH (08:45)
[2017-08-23] MEDS: Insulin LISPRO 300 UNITS/3 ML VIAL SQ SCH ×7 (08:46→21:48)
[2017-08-23] MEDS ORDERED: Magnesium Sulfate 2 GM in D5% in Water 100 ML IVPB ONE (09:59)
--- NOTE | 2017-08-23 10:04 | Internal Med Progress Note ---
Date of Encounter: 08/23/17 Time of Encounter: 10:01 - Assessment and plan (1) Sepsis Current Visit: Yes Status: Acute Assessment and plan: Patient presented with tachycardia, leukocytosis with scrotal abscess. Continue IV antibiotics, remaining plan as below. Improved sepsis. Qualifiers: Sepsis type: Streptococcus group B Qualified Code(s): A40.1 - Sepsis due to streptococcus, group B (2) Scrotal abscess Current Visit: Yes Status: Acute Assessment and plan: Urology on board, status post incision and drainage of left-sided scrotal abscess. Fluid culture grows group B streptococcus. Will change antibiotics to IV Unasyn and hold IV Zosyn and vancomycin at this time. Local wound care with iodoform packing per urology recommendations. Continue pain control with when necessary oral Percocet and IV morphine. Supportive care. (3) Cellulitis of scrotum Current Visit: Yes Status: Acute (4) Diabetes Current Visit: Yes Status: Chronic Assessment and plan: Blood sugars noted to be improving. Patient has uncontrolled diabetes as an outpatient due to medical noncompliance. He reports being on insurance lapse at this time, could not take insulin at home. Continue Accu-Chek blood glucose monitoring with basal bolus insulin regimen. We will decrease his bedtime dose of long-acting insulin. Qualifiers: Diabetes mellitus type: type 2 Diabetes mellitus complication status: with hyperglycemia Diabetes mellitus terminal gauger insulin use: with terminal gauger use Qualified Code(s): E11.65 - Type 2 diabetes mellitus with hyperglycemia; Z79.4 - terminal gauger (current) use of insulin; Z79.4 - terminal gauger (current) use of insulin ; Z79.4 - terminal gauger (current) use of insulin; Z79.4 - prison (current) use of insulin (5) Asthma Current Visit: Yes Status: Chronic Assessment and plan: Not in acute exacerbation. Continue when necessary bronchodilators and supplemental oxygen. Qualifiers: Asthma severity: mild Asthma persistence: intermittent Asthma complication type: uncomplicated Qualified Code(s): J45.20 - Mild intermittent asthma, uncomplicated (6) HTN (hypertension) Current Visit: Yes Status: Chronic Qualifiers: Hypertension type: essential hypertension Qualified Code(s): I10 - Essential (primary) hypertension (7) HLD (hyperlipidemia) Current Visit: Yes Status: Chronic Qualifiers: Hyperlipidemia type: unspecified Qualified Code(s): E78.5 - Hyperlipidemia , unspecified - Subjective Interval history: Feels better; no nausea, vomiting, abdominal pain. Improving left scrotal swelling, pain. - Constitutional Vitals: Temp Pulse Resp BP Pulse Ox 98.4 F 80 16 121/78 96 08/23/17 07:40 08/23/17 07:40 08/23/17 07:40 08/23/17 07:40 08/23/17 07:40 General appearance: Present: cooperative, A&O X 3, obese, answers questions appropriately - Respiratory Respiratory exam: Present: CTAB. Absent: accessory muscle use, rales, rhonchi, wheezes - Cardiovascular Cardiovascular exam: Present: RRR, +S1, +S2. Absent: diastolic murmur, gallop, rubs, systolic murmur - GI/Abdominal GI/Abdominal exam: Present: normal bowel sounds, soft, no peritoneal signs. Absent: distended, tenderness Internal Medicine: Result - Labs CBC & Chem 7: 08/23/17 07:02 08/23/17 07:02 Labs: Short CBC 08/23/17 Range/Units 07:02 WBC 9.3 (4.3-11.1) K/mcL Hgb 12.5 L (12.9-16.9) g/dL Hct 36.9 L (37.5-50.1) % Plt Count 332 (140-400) K/mcL Neutrophils # 5.5 (1.6-8.9) K/mcL BMP 08/23/17 07:02 Sodium 139 Potassium 3.4 L Chloride 107 Carbon Dioxide 25 BUN 10 Creatinine 0.85 Glucose 103 H Calcium 8.8 Liver Function 08/23/17 Range/Units 07:02 Total Bilirubin 0.5 (0.2-1.2) mg/dL AST 19 (5-34) Units/L ALT 27 (0-55) Units/L Alkaline Phosphatase 99 (38-126) Units/L Albumin 3.2 L (3.5-5.0) g/dL - ABG Interpretation ABG results: PT/INR, D-dimer PT 12.4 Seconds (9.4-12.1) H 08/22/17 04:27 - Impressions Impressions Echocardiogram 08/22/17 10:57 Impressions: LVEF 60%. Normal LV chamber size, wall thickness and function. Normal left ventricular diastolic function. Normal right ventricular structure and function. No evidence of pulmonary hypertension. No significant valvular dysfunction. Left Ventricular Wall Motion: Rest Echo Findings All wall segments showed normal motion. Findings: Study Quality * Technically adequate exam. ECG Findings * Normal sinus rhythm. Left Ventricle * LVEF 60%. * Normal LV chamber size, wall thickness and function. * Normal left ventricular diastolic function. Right Ventricle * Normal right ventricular structure and function. Left Atrium * Normal left atrial size. Right Atrium * Normal right atrial size. Interatrial Septum * Interatrial septum not well evaluated. Aortic Valve * Trileaflet aortic valve with normal function. * No aortic regurgitation. * No aortic stenosis. Mitral Valve * Normal mitral valve structure and function. * No mitral regurgitation. * No mitral stenosis. Tricuspid Valve * Normal tricuspid valve structure and function. * Trace tricuspid regurgitation. * No evidence of pulmonary hypertension. Pulmonic Valve * Pulmonic valve is not well visualized. Aorta * Normally sized aortic root. Pericardium * The pericardium appears normal. IVC * Normal IVC dimensions and inspiratory collapse. Pulmonary Artery * Normal visualized portions of the main pulmonary artery. Consult Discharge Plan - Plan Referrals: Patrice Umana DO [Primary Care Provider] -
[2017-08-23] MEDS: Ampicillin/Sulbactam 3,000 MG in 0.9 % Sodium Chloride Mini Bag 100 ML IVPB SCH ×2 (11:09→17:28)
[2017-08-23] MEDS: Insulin DETEMIR 100 UNIT/ML X5UNITS SQ SCH ×2 (11:21→21:48)
[2017-08-23] MEDS: Acetaminophen 325 MG TABLET PO PRN ×2 (12:37→21:56)
[2017-08-23] MEDS: *HR* OxyCODONE/APAP 5/325 TABLET PO PRN (18:20)
[2017-08-23] MEDS: Ondansetron 4 MG/2 ML VIAL IVP PRN (21:57)
[2017-08-24] MEDS: Metoclopramide 10 MG/2 ML VIAL IVP PRN ×2 (00:42→06:53)
[2017-08-24] MEDS: Ampicillin/Sulbactam 3,000 MG in 0.9 % Sodium Chloride Mini Bag 100 ML IVPB SCH ×2 (00:44→06:53)
[2017-08-24 06:48] LABS: Basophils # 0.1 K/mcL (0.0-0.2); Basophils % 0.6 %; Eosinophils # 0.4 K/mcL (0.0-0.6); Hemoglobin 12.1 g/dL (12.9-16.9); Immature Granulocytes % 0.4 % (0-4); Lymphocytes # 2.9 K/mcL (0.6-4.6); Lymphocytes % 27.2 %; Mean Corpuscular HGB Conc 34.6 g/dL (31.6-35.5); Mean Corpuscular Hemoglobin 29.3 pg (28.0-33.3); Mean Corpuscular Volume 84.7 fL (83.0-100.0); Mean Platelet Volume 9.5 fL (9.4-12.4); Monocytes # 0.7 K/mcL (0.0-1.3); Monocytes % 6.5 %; Neutrophils # 6.6 K/mcL (1.6-8.9); Platelet Count 332 K/mcL (140-400); Red Blood Count 4.13 M/mcL (4.19-5.50); Red Cell Distribution Width 11.9 % (11.5-14.5); Segmented Neutrophils % 61.3 %
[2017-08-24] MEDS: *HR* Enoxaparin 40 MG/0.4 ML SYRINGE SQ SCH (06:53)
[2017-08-24 06:58] LABS: Alanine Aminotransferase 29 Units/L (0-55); Albumin 3.2 g/dL (3.5-5.0); Albumin/Globulin Ratio 0.9 (1.1-2.2); Alkaline Phosphatase 96 Units/L (38-126); Aspartate Amino Transferase 19 Units/L (5-34); BUN/Creatinine Ratio 13 (6-26); Bilirubin,Total 0.5 mg/dL (0.2-1.2); Blood Urea Nitrogen 10 mg/dL (8-26); Calcium 8.8 mg/dL (8.6-10.8); Carbon Dioxide 27 mEq/L (19-29); Chloride 106 mEq/L (98-109); Globulin 3.7 g/dL (2.4-3.5); Glucose 110 mg/dL (70-99); Magnesium 2.2 mg/dL (1.6-2.6); Osmolality,Calculated 286 (280-300); Potassium 3.5 mEq/L (3.5-4.5); Sodium 138 mEq/L (136-145); Total Protein 6.9 g/dL (6.0-8.3); eGFR For African Americans > 60 (> 60); eGFR For Non-African Americans > 60 (> 60)
[2017-08-24 07:40] VITALS: BP 150/97
[2017-08-24] MEDS: Lisinopril-HCTZ 20-12.5mg TABLET PO SCH (08:12)
[2017-08-24] MEDS: Loratadine 10 MG TABLET PO SCH (08:12)
[2017-08-24] MEDS: Furosemide 20 MG TABLET PO SCH (08:12)
[2017-08-24] MEDS: Insulin LISPRO 300 UNITS/3 ML VIAL SQ SCH ×2 (08:13→08:15)
[2017-08-24] MEDS: Insulin DETEMIR 100 UNIT/ML X5UNITS SQ SCH (09:25)
[2017-08-24] MEDS: Ondansetron 4 MG/2 ML VIAL IVP PRN (09:25)
--- NOTE | 2017-08-24 09:38 | Urology Progress Note ---
Date of Encounter: 08/24/17 Time of Encounter: 09:37 - Assessment and Plan (1) Scrotal abscess Current Visit: Yes Status: Acute Assessment and plan: Continue dressing changes. He can follow up with me in 2 weeks for a wound check. Transition to oral antibiotics. Streptococcus grew out. will sign off. Consider d/c home today. Progress Note Narrative: Doing well today. Pain improved. He is feeling comfortable with dressing changes. Objective Initial Vital Signs Temp Pulse Resp BP Pulse Ox 98.3 F 118 20 141/88 96 08/21/17 14:41 08/21/17 14:41 08/21/17 14:41 08/21/17 14:41 08/21/17 14:41 - General physical appearance Present: well developed, well nourished, no distress - Respiratory Present: normal respiratory effort - Labs 08/24/17 06:26 08/24/17 06:26 Diabetes panel 08/24/17 Range/Units 06:26 Sodium 138 (136-145) mEq/L Potassium 3.5 (3.5-4.5) mEq/L Chloride 106 (98-109) mEq/L Carbon Dioxide 27 (19-29) mEq/L BUN 10 (8-26) mg/dL Creatinine 0.78 (0.72-1.25) mg/dL Glucose 110 H (70-99) mg/dL Calcium 8.8 (8.6-10.8) mg/dL AST 19 (5-34) Units/L ALT 29 (0-55) Units/L Alkaline Phosphatase 96 (38-126) Units/L Albumin 3.2 L (3.5-5.0) g/dL Calcium panel 08/24/17 Range/Units 06:26 Calcium 8.8 (8.6-10.8) mg/dL Albumin 3.2 L (3.5-5.0) g/dL Pituitary panel 08/24/17 Range/Units 06:26 Sodium 138 (136-145) mEq/L Potassium 3.5 (3.5-4.5) mEq/L Chloride 106 (98-109) mEq/L Carbon Dioxide 27 (19-29) mEq/L BUN 10 (8-26) mg/dL Creatinine 0.78 (0.72-1.25) mg/dL Glucose 110 H (70-99) mg/dL Calcium 8.8 (8.6-10.8) mg/dL Adrenal panel 08/24/17 Range/Units 06:26 Sodium 138 (136-145) mEq/L Potassium 3.5 (3.5-4.5) mEq/L Chloride 106 (98-109) mEq/L Carbon Dioxide 27 (19-29) mEq/L BUN 10 (8-26) mg/dL Creatinine 0.78 (0.72-1.25) mg/dL Glucose 110 H (70-99) mg/dL Calcium 8.8 (8.6-10.8) mg/dL Total Bilirubin 0.5 (0.2-1.2) mg/dL AST 19 (5-34) Units/L ALT 29 (0-55) Units/L Alkaline Phosphatase 96 (38-126) Units/L Albumin 3.2 L (3.5-5.0) g/dL Consult Discharge Plan - Plan Referrals: Patrice Umana DO [Primary Care Provider] -
[2017-08-24] MEDS: *HR* OxyCODONE/APAP 5/325 TABLET PO PRN (10:09)
--- NOTE | 2017-08-24 13:05 | Discharge Summary ---
Date of Encounter: 08/24/17 Time of Encounter: 09:30 - Discharge Diagnosis (1) Sepsis Priority: Primary Status: Acute Qualifiers: Sepsis type: Streptococcus group B Qualified Code(s): A40.1 - Sepsis due to streptococcus, group B (2) Scrotal abscess Priority: Primary Status: Acute (3) Cellulitis of scrotum Priority: Primary Status: Acute (4) Diabetes Priority: Secondary Status: Chronic Qualifiers: Diabetes mellitus type: type 2 Diabetes mellitus complication status: with hyperglycemia Diabetes mellitus termite exterminator insulin use: with termite exterminator use Qualified Code(s): E11.65 - Type 2 diabetes mellitus with hyperglycemia; Z79.4 - terminal operations manager (current) use of insulin; Z79.4 - halfway (current) use of insulin ; Z79.4 - terminal operations manager (current) use of insulin; Z79.4 - halfway (current) use of insulin (5) Asthma Priority: Secondary Status: Chronic Qualifiers: Asthma severity: mild Asthma persistence: intermittent Asthma complication type: uncomplicated Qualified Code(s): J45.20 - Mild intermittent asthma, uncomplicated (6) HTN (hypertension) Priority: Secondary Status: Chronic Qualifiers: Hypertension type: essential hypertension Qualified Code(s): I10 - Essential (primary) hypertension (7) HLD (hyperlipidemia) Priority: Secondary Status: Chronic Qualifiers: Hyperlipidemia type: unspecified Qualified Code(s): E78.5 - Hyperlipidemia , unspecified - Discharge Medications Prescriptions: OxyCODONE/APAP 5/325 [Percocet 5/325 MG] 1 each PO Q6HR PRN #10 tablet PRN Reason: Pain Amoxicillin/Clavulanate [Augmentin] 875 mg PO BIDWM #20 tablet Gauze Bandage [Gauze Pads] 1 each TP BID 10 Days bandage Iodoform [Curity Iodoform] 1 each TP BID #2 bandage Home Medications: Albuterol Sulfate [Proair Hfa] 1 - 2 puff IH Q6H PRN 10/13/16 [History] Furosemide [Lasix] 20 mg PO QAM 10/13/16 [History] Ibuprofen [Motrin] 800 mg PO Q8HR PRN 10/13/16 [History] Insulin ASPART [NovoLOG] 2 - 10 unit SQ TIDWM 10/13/16 [History] Lisinopril-HCTZ 20-12.5 [Prinzide 20-12.5] 1 tab PO QAM 10/13/16 [History] Meloxicam [Mobic] 7.5 mg PO DAILY 10/13/16 [History] Montelukast [Singulair] 10 mg PO DAILY 10/13/16 [History] Cetirizine HCl [Zyrtec] 10 mg PO DAILY 11/09/16 [History] Amoxicillin/Clavulanate [Augmentin] 875 mg PO BIDWM #20 tablet 08/24/17 [Rx] Gauze Bandage [Gauze Pads] 1 each TP BID 10 Days bandage 08/24/17 [Rx] Insulin Glargine [Lantus] 80 unit SQ BID 30 Days 08/24/17 [Rx] Iodoform [Curity Iodoform] 1 each TP BID #2 bandage 08/24/17 [Rx] OxyCODONE/APAP 5/325 [Percocet 5/325 MG] 1 each PO Q6HR PRN #10 tablet 08/24/17 [Rx] Allergies/Adverse Reactions: 3 Allergy/AdvReac Type Severity Reaction Status Date / Time Amoxicillin Allergy Hives Verified 08/21/17 14:41 Penicillins Allergy Hives Verified 08/24/17 15:25 Sulfa (Sulfonamide Allergy Hives Verified 08/21/17 14:41 Antibiotics) Procedures/tests Complete & Pending: Procedures Performed prior 72 hours Category Date Time Status EV echocardiogram Stat Y 08/22/17 10:57 Completed Date of admission: 08/21/17 21:30 Primary care physician: Patrice Umana DO Consults: 08/21/17 21:51 Consult to Guest Services Ambassador [CONS] Routine Comment: Reason for Consult: Patient requires education regarding diet, sugar intake, insulin control, etc. 08/21/17 22:06 Consult to Wound Care [CONS] Routine Reason for Consult: Patient has wound on left side of scrotum. Wound culture and wound care ordered. Call Completed: No Discharging clinician: Gina Oconnell Anticipated date of discharge: 08/24/17 - Patient Status Disposition: Home, Self-Care Condition: Good Functional capacity at discharge: independent ambulation Overall status at discharge: patient is progressing back to baseline - Discharge Instructions Instructions: Abscess (GEN) Follow Up With: Anthony Suazo MD [Partnered Physician] - 09/06/17 2:15 pm Additional Instructions: F/up with PCP in 1-2 weeks - Diet and Activity Activity: resume usual activities as tolerated Diet: diabetic diet, low fat, low cholesterol, low salt diet Hospital course: Mr. Thacker is a 32 year old male with the above medical problems, who was admitted with tachycardia, leukocytosis and perineal Pain. CT abdomen/pelvis done in the emergency room showed changes suggestive of cellulitis of left hemiscrotum with associated left perineum. He was started on broad-spectrum IV antibiotics-vancomycin and Zosyn. Urology was consulted and patient underwent bedside incision and drainage of left scrotal abscess. Wound culture eventually grew group B streptococcus and patient's antibiotics were changed to IV Unasyn. His symptoms are currently significantly improved, he has no leukocytosis, fever or tachycardia at this time and remains hemodynamically stable. Patient's has been taught to pack his scrotal wound and he will follow up with urology as outpatient. He also had noted allergy to penicillin, however he tolerated Zosyn and Unasyn well while in the hospital and he is currently being discharged on oral Augmentin. Patient was also noted to have uncontrolled blood sugars at admission, which are currently better controlled. He was noted to be noncompliant with insulin as an outpatient due to insurance issues and he is currently Medicaid eligible and received his insurance. He is encouraged to begin using his insulin and he did confirm with his pharmacy that he has refills left on his previous insulin prescriptions. - Time Spent with Patient Total time spent providing and/or coordinating discharge services: Greater than 30 minutes (45 min) - Constitutional Vitals: Temp Pulse Resp BP Pulse Ox 97.7 F 87 16 150/97 98 08/24/17 07:34 08/24/17 07:34 08/24/17 11:03 08/24/17 07:34 08/24/17 11:03 General appearance: Present: cooperative, A&O X 3, obese, answers questions appropriately - Cardiovascular Cardiovascular exam: Present: RRR, +S1, +S2. Absent: diastolic murmur, gallop, rubs, systolic murmur
== END 2017-08-24 14:00 | disposition home or self-care (01) | DRG 720 ==
LOC: 3ANU 14:36 → EMEROO 14:36 → 3ANU 17:59 → SUATTDRO 21:30
PROVIDERS: ADMIT Nurse Practitioner Family; ATTEND Internal Medicine

== ENCOUNTER 2021-11-06 16:35 | Inpatient (IN) ==
[2021-11-06] MEDS ORDERED: Ondansetron 4 MG/2 ML VIAL IVP ONE (18:25)
[2021-11-06] MEDS ORDERED: 0.9 % Sodium Chloride 1,000 ML IVC ONE (18:25)
[2021-11-06] MEDS ORDERED: *HR* HYDROmorphone (PF) 1 MG/ML SYRINGE IVP ONE (18:25)
[2021-11-06 19:44] LABS: Basophils % 0.4 %; Eosinophils # 0.2 K/mcL (0.0-0.6); Hematocrit 39.2 % (37.5-50.1); Hemoglobin 12.9 g/dL (12.9-16.9); Immature Granulocytes % 0.3 % (0-4); Lymphocytes # 0.5 K/mcL (0.6-4.6); Mean Corpuscular HGB Conc 32.9 g/dL (31.6-35.5); Mean Corpuscular Volume 88.1 fL (83.0-100.0); Mean Platelet Volume 10.1 fL (9.4-12.4); Monocytes # 0.8 K/mcL (0.0-1.3); Monocytes % 10.2 %; Neutrophils # 6.1 K/mcL (1.6-8.9); Platelet Count 206 K/mcL (140-400); Red Blood Count 4.45 M/mcL (4.19-5.50); Red Cell Distribution Width 11.5 % (11.5-14.5); Segmented Neutrophils % 81.1 %; White Blood Count 7.5 K/mcL (4.3-11.1)
[2021-11-06 20:05] LABS: Alanine Aminotransferase 32 Units/L (7-52); Albumin 4.1 g/dL (3.5-5.7); Albumin/Globulin Ratio 1.6 (1.1-2.2); Alkaline Phosphatase 72 Units/L (34-104); Amylase 24 Units/L (29-103); Aspartate Amino Transferase 19 Units/L (13-39); BUN/Creatinine Ratio 14 (6-26); Bilirubin,Direct 0.1 mg/dL (0.0-0.2); Bilirubin,Indirect 0.6 mg/dL (0.0-1.0); Bilirubin,Total 0.7 mg/dL (0.3-1.0); Blood Urea Nitrogen 12 mg/dL (6-20); Calcium 8.8 mg/dL (8.6-10.3); Carbon Dioxide 22 mEq/L (23-29); Chloride 104 mEq/L (98-107); Globulin 2.6 g/dL (2.4-3.5); Glucose 181 mg/dL (70-105); Lipase 33 Units/L (11-82); Osmolality,Calculated 286 (280-300); Potassium 3.7 mEq/L (3.5-5.1); Sodium 136 mEq/L (136-145); Total Protein 6.7 g/dL (6.4-8.9); Troponin I < 0.03 ng/mL (< 0.04); eGFR For African Americans > 60 (> 60); eGFR For Non-African Americans > 60 (> 60)
[2021-11-06] MEDS: Piperacillin/Tazobactam 3.375 GM in 0.9 % Sodium Chloride Mini Bag 100 ML IVPB ONE ×2 (20:57→21:36)
[2021-11-06] MEDS ORDERED: Naloxone 0.4 MG/ML INJ IVP PRN (20:59)
[2021-11-06] MEDS ORDERED: *HR* Dextrose 50 % in Water (Syg) 50 ML SYRINGE IVP PRN (21:18)
[2021-11-06] MEDS ORDERED: Dextrose Gel 15 GM/37.5 ML TUBE PO PRN ×2 (21:18)
[2021-11-06] MEDS ORDERED: D5% in Water 1,000 ML IVC PRN (21:18)
[2021-11-06] MEDS ORDERED: MetroNIDAZOLE 500 MG/100 ML 500 MG/100 ML BAG IVPB SCH (22:00)
[2021-11-06] MEDS ORDERED: Cefepime HCl 1,000 MG in Water for inj. (sterile) 10 ML IVP SCH (22:00)
[2021-11-06] MEDS ORDERED: Ketorolac 30 MG/ML VIAL IVP ONE (22:24)
[2021-11-06 23:05] LABS: Bilirubin,Urine Negative (Negative); Blood,Urine Negative (Negative); Clarity,Urine Clear (Clear); Color,Urine Colorless (Yellow); Glucose,Urine (UA) >=1000 mg/dL (Normal); Ketones,Urine 60 mg/dL (Negative); Leukocyte Esterase,Urine Negative (Negative); Nitrite,Urine Negative (Negative); Protein,Urine Trace mg/dL (Neg-Trace); Specific Gravity,Urine > 1.030 (1.010-1.025); Urobilinogen,Urine Normal (Normal); WBC,Urine 0-3 per hpf (0-3)
[2021-11-06] MEDS: Insulin LISPRO 300 UNITS/3 ML VIAL SUBQ SCH (23:34)
[2021-11-07] MEDS ORDERED: Piperacillin/Tazobactam 3.375 GM in 0.9 % Sodium Chloride Mini Bag 100 ML IVPB SCH
[2021-11-07] MEDS: 0.9 % Sodium Chloride 1,000 ML IVC SCH ×2 (00:55→22:44)
[2021-11-07 01:39] LABS: Basophils % 0.4 %; Eosinophils # 0.1 K/mcL (0.0-0.6); Eosinophils % 0.8 %; Hematocrit 36.6 % (37.5-50.1); Hemoglobin 12.3 g/dL (12.9-16.9); Immature Granulocytes % 0.3 % (0-4); Lymphocytes # 0.9 K/mcL (0.6-4.6); Lymphocytes % 12.3 %; Mean Corpuscular HGB Conc 33.6 g/dL (31.6-35.5); Mean Corpuscular Hemoglobin 29.8 pg (28.0-33.3); Mean Corpuscular Volume 88.6 fL (83.0-100.0); Mean Platelet Volume 10.3 fL (9.4-12.4); Monocytes # 0.7 K/mcL (0.0-1.3); Monocytes % 9.3 %; Neutrophils # 5.5 K/mcL (1.6-8.9); Platelet Count 207 K/mcL (140-400); Red Blood Count 4.13 M/mcL (4.19-5.50); Red Cell Distribution Width 11.5 % (11.5-14.5); Segmented Neutrophils % 76.9 %; White Blood Count 7.2 K/mcL (4.3-11.1)
[2021-11-07 01:50] LABS: Prothrombin Time 11.6 Seconds (9.4-12.1)
[2021-11-07 01:52] LABS: Alanine Aminotransferase 26 Units/L (7-52); Albumin 3.6 g/dL (3.5-5.7); Albumin/Globulin Ratio 1.5 (1.1-2.2); Alkaline Phosphatase 65 Units/L (34-104); Aspartate Amino Transferase 17 Units/L (13-39); BUN/Creatinine Ratio 11 (6-26); Bilirubin,Direct 0.1 mg/dL (0.0-0.2); Bilirubin,Indirect 0.5 mg/dL (0.0-1.0); Bilirubin,Total 0.6 mg/dL (0.3-1.0); Blood Urea Nitrogen 9 mg/dL (6-20); Calcium 8.1 mg/dL (8.6-10.3); Carbon Dioxide 18 mEq/L (23-29); Chloride 106 mEq/L (98-107); Globulin 2.4 g/dL (2.4-3.5); Glucose 140 mg/dL (70-105); Magnesium 1.8 mg/dL (1.6-2.6); Osmolality,Calculated 285 (280-300); Potassium 3.6 mEq/L (3.5-5.1); Sodium 137 mEq/L (136-145); eGFR For African Americans > 60 (> 60); eGFR For Non-African Americans > 60 (> 60)
[2021-11-07] MEDS: *HR* Insulin Regular U-500 500 UNIT/ML SUBQ SCH ×2 (09:27→22:42)
[2021-11-07] MEDS: Insulin LISPRO 300 UNITS/3 ML VIAL SUBQ SCH ×3 (09:27→17:23)
[2021-11-07] MEDS: LIRAGLUTIDE 0.6 MG/0.1 ML SQ SCH (09:28)
[2021-11-07] MEDS: Loratadine 10 MG TABLET PO SCH (09:32)
[2021-11-07] MEDS: Cefepime HCl 1,000 MG in Water for inj. (sterile) 10 ML IVP SCH ×2 (09:32→18:29)
[2021-11-07] MEDS: MetroNIDAZOLE 500 MG/100 ML 500 MG/100 ML BAG IVPB SCH ×2 (09:33→18:30)
[2021-11-07] MEDS ORDERED: Furosemide 40 MG/4 ML VIAL IVP ONE (10:05)
[2021-11-07] MEDS: Ipratropium 1 PUFF INHALER IH SCH ×3 (11:23→19:45)
[2021-11-07] MEDS ORDERED: Insulin LISPRO 300 UNITS/3 ML VIAL SUBQ SCH (21:00)
[2021-11-07] MEDS: Melatonin 3 MG TABLET PO SCH (21:03)
[2021-11-07] MEDS: Ondansetron 4 MG/2 ML VIAL IVP PRN (21:04)
[2021-11-07] MEDS: *HR* HYDROmorphone (PF) 1 MG/ML SYRINGE IVP PRN (23:21)
[2021-11-08] MEDS: Cefepime HCl 1,000 MG in Water for inj. (sterile) 10 ML IVP SCH ×3 (02:09→18:23)
[2021-11-08] MEDS: MetroNIDAZOLE 500 MG/100 ML 500 MG/100 ML BAG IVPB SCH ×4 (02:10→18:19)
[2021-11-08] MEDS ORDERED: Isovue-370 500 ML BOTTLE IVP ONE (02:48)
[2021-11-08] MEDS: *HR* HYDROmorphone (PF) 1 MG/ML SYRINGE IVP PRN (03:24)
[2021-11-08] MEDS: Ipratropium 1 PUFF INHALER IH SCH ×4 (03:37→19:59)
[2021-11-08 05:33] LABS: Basophils # 0.1 K/mcL (0.0-0.2); Basophils % 0.6 %; Eosinophils # 0.1 K/mcL (0.0-0.6); Eosinophils % 1.4 %; Hemoglobin 12.8 g/dL (12.9-16.9); Immature Granulocytes % 0.3 % (0-4); Lymphocytes % 25.4 %; Mean Corpuscular HGB Conc 32.8 g/dL (31.6-35.5); Mean Corpuscular Hemoglobin 29.7 pg (28.0-33.3); Mean Corpuscular Volume 90.5 fL (83.0-100.0); Mean Platelet Volume 10.1 fL (9.4-12.4); Monocytes % 12.8 %; Neutrophils # 4.6 K/mcL (1.6-8.9); Platelet Count 194 K/mcL (140-400); Red Blood Count 4.31 M/mcL (4.19-5.50); Red Cell Distribution Width 11.8 % (11.5-14.5); Segmented Neutrophils % 59.5 %; White Blood Count 7.7 K/mcL (4.3-11.1)
[2021-11-08 05:53] LABS: Alanine Aminotransferase 30 Units/L (7-52); Albumin 3.6 g/dL (3.5-5.7); Albumin/Globulin Ratio 1.4 (1.1-2.2); Alkaline Phosphatase 68 Units/L (34-104); Aspartate Amino Transferase 26 Units/L (13-39); BUN/Creatinine Ratio 14 (6-26); Bilirubin,Direct 0.1 mg/dL (0.0-0.2); Bilirubin,Indirect 0.5 mg/dL (0.0-1.0); Bilirubin,Total 0.6 mg/dL (0.3-1.0); Blood Urea Nitrogen 13 mg/dL (6-20); Carbon Dioxide 21 mEq/L (23-29); Chloride 103 mEq/L (98-107); Globulin 2.5 g/dL (2.4-3.5); Glucose 164 mg/dL (70-105); Magnesium 1.9 mg/dL (1.6-2.6); Osmolality,Calculated 288 (280-300); Potassium 3.6 mEq/L (3.5-5.1); Sodium 137 mEq/L (136-145); Total Protein 6.1 g/dL (6.4-8.9); eGFR For African Americans > 60 (> 60); eGFR For Non-African Americans > 60 (> 60)
[2021-11-08] MEDS: Ondansetron 4 MG/2 ML VIAL IVP PRN (07:55)
[2021-11-08] MEDS: *HR* Insulin Regular U-500 500 UNIT/ML SUBQ SCH ×2 (08:00→21:01)
[2021-11-08] MEDS: Insulin LISPRO 300 UNITS/3 ML VIAL SUBQ SCH ×3 (08:00→16:32)
[2021-11-08 08:56] LABS: Adenovirus Not Detected (Not Detect); Bordetella Pertussis Not Detected (Not Detect); Chlamydophila pneumoniae Not Detected (Not Detect); Coronavirus 229E Not Detected (Not Detect); Coronavirus HKU1 Not Detected (Not Detect); Coronavirus NL63 Not Detected (Not Detect); Coronavirus OC43 Not Detected (Not Detect); Human Metapneumovirus Not Detected (Not Detect); Human Rhinovirus/Enterovirus Not Detected (Not Detect); Influenza A Subtype 2009 H1 Not Detected (Not Detect); Influenza B Not Detected (Not Detect); Mycoplasma pneumoniae Not Detected (Not Detect); Parainfluenza Virus 1 Not Detected (Not Detect); Parainfluenza Virus 2 Not Detected (Not Detect); Parainfluenza Virus 3 Not Detected (Not Detect); Parainfluenza Virus 4 Not Detected (Not Detect); Respiratory Syncytial Virus Not Detected (Not Detect)
[2021-11-08 08:58] LABS: SARS-CoV-2 DETECTED (Not Detect)
[2021-11-08] MEDS: LIRAGLUTIDE 0.6 MG/0.1 ML SQ SCH (09:13)
[2021-11-08] MEDS: Loratadine 10 MG TABLET PO SCH (09:13)
[2021-11-08] MEDS: *HR* Enoxaparin 40 MG/0.4 ML SYRINGE SQ SCH (10:03)
[2021-11-08] MEDS ORDERED: *HR* Promethazine 25 MG/ML VIAL IM PRN (12:47)
[2021-11-08] MEDS ORDERED: Ondansetron 4 MG/2 ML VIAL IVP PRN (12:48)
[2021-11-08] MEDS: Acetaminophen 325 MG TABLET PO PRN ×2 (15:07→21:14)
[2021-11-08] MEDS: Melatonin 3 MG TABLET PO SCH (21:14)
[2021-11-09] MEDS: Cefepime HCl 1,000 MG in Water for inj. (sterile) 10 ML IVP SCH ×2 (01:37→08:53)
[2021-11-09 02:10] LABS: Basophils % 0.4 %; Eosinophils # 0.2 K/mcL (0.0-0.6); Hematocrit 38.3 % (37.5-50.1); Hemoglobin 12.7 g/dL (12.9-16.9); Immature Granulocytes % 0.2 % (0-4); Lymphocytes # 2.3 K/mcL (0.6-4.6); Lymphocytes % 45.6 %; Mean Corpuscular HGB Conc 33.2 g/dL (31.6-35.5); Mean Corpuscular Hemoglobin 29.9 pg (28.0-33.3); Mean Corpuscular Volume 90.1 fL (83.0-100.0); Mean Platelet Volume 9.8 fL (9.4-12.4); Monocytes # 0.5 K/mcL (0.0-1.3); Monocytes % 9.5 %; Platelet Count 211 K/mcL (140-400); Red Blood Count 4.25 M/mcL (4.19-5.50); Red Cell Distribution Width 11.9 % (11.5-14.5); Segmented Neutrophils % 41.3 %; White Blood Count 4.9 K/mcL (4.3-11.1)
[2021-11-09 02:29] LABS: BUN/Creatinine Ratio 12 (6-26); Blood Urea Nitrogen 13 mg/dL (6-20); Calcium 8.2 mg/dL (8.6-10.3); Carbon Dioxide 19 mEq/L (23-29); Chloride 103 mEq/L (98-107); Glucose 138 mg/dL (70-105); Magnesium 1.8 mg/dL (1.6-2.6); Osmolality,Calculated 286 (280-300); Potassium 3.7 mEq/L (3.5-5.1); Sodium 137 mEq/L (136-145); eGFR For African Americans > 60 (> 60); eGFR For Non-African Americans > 60 (> 60)
[2021-11-09 02:31] LABS: Albumin 3.5 g/dL (3.5-5.7); Albumin/Globulin Ratio 1.3 (1.1-2.2); Bilirubin,Direct 0.1 mg/dL (0.0-0.2); Bilirubin,Indirect 0.4 mg/dL (0.0-1.0); Bilirubin,Total 0.5 mg/dL (0.3-1.0); Globulin 2.6 g/dL (2.4-3.5); Total Protein 6.1 g/dL (6.4-8.9)
[2021-11-09] MEDS: MetroNIDAZOLE 500 MG/100 ML 500 MG/100 ML BAG IVPB SCH ×2 (02:40→09:01)
[2021-11-09] MEDS: *HR* Enoxaparin 40 MG/0.4 ML SYRINGE SQ SCH (02:59)
[2021-11-09] MEDS: Ipratropium 1 PUFF INHALER IH SCH ×2 (03:13→08:00)
[2021-11-09] MEDS: Insulin LISPRO 300 UNITS/3 ML VIAL SUBQ SCH (08:02)
[2021-11-09] MEDS: *HR* Insulin Regular U-500 500 UNIT/ML SUBQ SCH (08:03)
[2021-11-09] MEDS: LIRAGLUTIDE 0.6 MG/0.1 ML SQ SCH (08:44)
[2021-11-09] MEDS: Loratadine 10 MG TABLET PO SCH (08:51)
[2021-11-09 11:46] VITALS: BP 114/79; PULSE 72; TEMP 98.8; O2SAT 98
== END 2021-11-09 13:34 | disposition home or self-care (01) | DRG 720 ==
LOC: EMEROOARM 16:35 → 3ANU 16:35 → SUATTDRO 21:29 → 3ANU 21:51 → 3BNU 22:13
PROVIDERS: ADMIT Student in an Organized Health Care Education/Training Program; ATTEND Pharmacist

== ENCOUNTER 2022-05-25 13:32 | Inpatient (IN) ==
[2022-05-25] MEDS ORDERED: Vancomycin 1,500 MG/265 ML IV.SOLN IVPB ONE (15:23)
[2022-05-25] MEDS: 0.9 % Sodium Chloride 1,000 ML IVC SCH ×2 (15:40→21:47)
[2022-05-25 15:47] LABS: Basophils # 0.1 K/mcL (0.0-0.2); Basophils % 0.4 %; Eosinophils # 0.1 K/mcL (0.0-0.6); Eosinophils % 0.9 %; Hematocrit 40.5 % (37.5-50.1); Hemoglobin 13.3 g/dL (12.9-16.9); Immature Granulocytes % 0.4 % (0-4); Lymphocytes # 1.8 K/mcL (0.6-4.6); Lymphocytes % 13.6 %; Mean Corpuscular HGB Conc 32.8 g/dL (31.6-35.5); Mean Corpuscular Hemoglobin 28.7 pg (28.0-33.3); Mean Corpuscular Volume 87.5 fL (83.0-100.0); Mean Platelet Volume 9.7 fL (9.4-12.4); Monocytes % 7.3 %; Neutrophils # 10.4 K/mcL (1.6-8.9); Platelet Count 317 K/mcL (140-400); Red Blood Count 4.63 M/mcL (4.19-5.50); Red Cell Distribution Width 11.9 % (11.5-14.5); Segmented Neutrophils % 77.4 %; White Blood Count 13.5 K/mcL (4.3-11.1)
[2022-05-25 16:10] LABS: BUN/Creatinine Ratio 18 (6-26); Blood Urea Nitrogen 17 mg/dL (6-20); C-Reactive Protein 156 mg/L (Less than 10); Calcium 9.3 mg/dL (8.6-10.3); Carbon Dioxide 22 mEq/L (23-29); Chloride 98 mEq/L (98-107); Glucose 345 mg/dL (70-105); Osmolality,Calculated 289 (280-300); Potassium 3.6 mEq/L (3.5-5.1); Sodium 132 mEq/L (136-145); eGFR For African Americans > 60 (> 60); eGFR For Non-African Americans > 60 (> 60)
[2022-05-25] MEDS ORDERED: Naloxone 0.4 MG/ML INJ IVP PRN (17:20)
[2022-05-25] MEDS ORDERED: Melatonin 3 MG TABLET PO PRN (17:20)
[2022-05-25] MEDS ORDERED: Ondansetron ODT 4 MG TAB.RAPDIS SL PRN (17:20)
[2022-05-25] MEDS ORDERED: Gadolinium Contrast Agent (WT Based) IV PRN (18:25)
[2022-05-25] MEDS: levoFLOXacin 750 MG/150 ML 750 MG/150 ML BAG IVPB SCH (20:07)
[2022-05-25] MEDS: Ringers Solution, Lactated 1,000 ML IVC SCH (21:47)
[2022-05-25] MEDS: *HR* Heparin 5,000 UNIT/ML VIAL SQ SCH (21:51)
[2022-05-25] MEDS ORDERED: *HR* Dextrose 50 % in Water (Syg) 50 ML SYRINGE IVP PRN (22:35)
[2022-05-25] MEDS ORDERED: D5% in Water 1,000 ML IVC PRN (22:35)
[2022-05-25] MEDS ORDERED: Dextrose Gel 15 GM/37.5 ML TUBE PO PRN ×2 (22:35)
[2022-05-25] MEDS: Insulin LISPRO 300 UNITS/3 ML VIAL SUBQ SCH (23:01)
[2022-05-25] MEDS: MetroNIDAZOLE 500 MG/100 ML 500 MG/100 ML BAG IVPB SCH (23:49)
[2022-05-26] MEDS: Vancomycin 1,500 MG/265 ML IV.SOLN IVPB SCH (04:42)
[2022-05-26 05:45] LABS: Basophils # 0.1 K/mcL (0.0-0.2); Basophils % 0.4 %; Eosinophils # 0.3 K/mcL (0.0-0.6); Eosinophils % 1.9 %; Hematocrit 34.1 % (37.5-50.1); Immature Granulocytes % 0.3 % (0-4); Lymphocytes # 2.7 K/mcL (0.6-4.6); Lymphocytes % 20.1 %; Mean Corpuscular HGB Conc 32.8 g/dL (31.6-35.5); Mean Corpuscular Hemoglobin 28.8 pg (28.0-33.3); Mean Corpuscular Volume 87.7 fL (83.0-100.0); Mean Platelet Volume 9.7 fL (9.4-12.4); Monocytes # 1.3 K/mcL (0.0-1.3); Monocytes % 9.6 %; Neutrophils # 9.1 K/mcL (1.6-8.9); Platelet Count 277 K/mcL (140-400); Red Blood Count 3.89 M/mcL (4.19-5.50); Red Cell Distribution Width 11.8 % (11.5-14.5); Segmented Neutrophils % 67.7 %; White Blood Count 13.4 K/mcL (4.3-11.1)
[2022-05-26 05:46] LABS: Hemoglobin 11.2 g/dL (12.9-16.9)
[2022-05-26 05:55] LABS: INR 1.1; Prothrombin Time 12.5 Seconds (9.4-12.1)
[2022-05-26 05:57] LABS: Activated Partial Thrombo Time 30.6 Seconds (26.0-36.0); BUN/Creatinine Ratio 17 (6-26); Blood Urea Nitrogen 16 mg/dL (6-20); Calcium 8.2 mg/dL (8.6-10.3); Carbon Dioxide 21 mEq/L (23-29); Chloride 103 mEq/L (98-107); Glucose 211 mg/dL (70-105); Osmolality,Calculated 287 (280-300); Potassium 3.4 mEq/L (3.5-5.1); Sodium 135 mEq/L (136-145); eGFR For African Americans > 60 (> 60); eGFR For Non-African Americans > 60 (> 60)
[2022-05-26] MEDS: Insulin LISPRO 300 UNITS/3 ML VIAL SUBQ SCH ×3 (06:14→17:19)
[2022-05-26] MEDS: *HR* Heparin 5,000 UNIT/ML VIAL SQ SCH ×3 (06:16→23:24)
[2022-05-26] MEDS ORDERED: Potassium Chloride Elixir 20 MEQ/15 ML UDC PO ONE (07:07)
[2022-05-26] MEDS: MetroNIDAZOLE 500 MG/100 ML 500 MG/100 ML BAG IVPB SCH ×2 (07:54→15:51)
[2022-05-26] MEDS ORDERED: GADOBUTROL 30 MMOL/30 ML VIAL IVP ONE (10:39)
[2022-05-26] MEDS: Ringers Solution, Lactated 1,000 ML IVC SCH (12:48)
[2022-05-26] MEDS ORDERED: Vancomycin 1,500 MG/265 ML IV.SOLN IVPB SCH (16:30)
[2022-05-26] MEDS: levoFLOXacin 750 MG/150 ML 750 MG/150 ML BAG IVPB SCH (19:54)
[2022-05-27] MEDS: MetroNIDAZOLE 500 MG/100 ML 500 MG/100 ML BAG IVPB SCH ×4 (00:30→23:53)
[2022-05-27] MEDS: Insulin LISPRO 300 UNITS/3 ML VIAL SUBQ SCH ×5 (00:30→23:54)
[2022-05-27] MEDS: Vancomycin 1,500 MG/265 ML IV.SOLN IVPB SCH (03:11)
[2022-05-27 03:32] LABS: Hematocrit 36.6 % (37.5-50.1); Hemoglobin 11.9 g/dL (12.9-16.9); Mean Corpuscular HGB Conc 32.5 g/dL (31.6-35.5); Mean Corpuscular Hemoglobin 29.4 pg (28.0-33.3); Mean Corpuscular Volume 90.4 fL (83.0-100.0); Mean Platelet Volume 9.5 fL (9.4-12.4); Platelet Count 330 K/mcL (140-400); Red Blood Count 4.05 M/mcL (4.19-5.50); Red Cell Distribution Width 11.7 % (11.5-14.5); White Blood Count 12.6 K/mcL (4.3-11.1)
[2022-05-27 03:41] LABS: INR 1.2; Prothrombin Time 13.8 Seconds (9.4-12.1)
[2022-05-27 03:47] LABS: Activated Partial Thrombo Time 34.1 Seconds (26.0-36.0); BUN/Creatinine Ratio 14 (6-26); Blood Urea Nitrogen 13 mg/dL (6-20); Calcium 8.8 mg/dL (8.6-10.3); Carbon Dioxide 21 mEq/L (23-29); Chloride 102 mEq/L (98-107); Glucose 242 mg/dL (70-105); Magnesium 1.8 mg/dL (1.6-2.6); Osmolality,Calculated 284 (280-300); Phosphorous 2.6 mg/dL (2.7-4.5); Potassium 3.9 mEq/L (3.5-5.1); Sodium 133 mEq/L (136-145); eGFR For African Americans > 60 (> 60); eGFR For Non-African Americans > 60 (> 60)
[2022-05-27] MEDS ORDERED: Vancomycin 1,750 MG/517.5 ML IV.SOLN IVPB SCH (04:00)
[2022-05-27] MEDS: *HR* Heparin 5,000 UNIT/ML VIAL SQ SCH ×3 (05:39→20:32)
[2022-05-27] MEDS ORDERED: Lidocaine -MPF 2% 5 ML VIAL ONE (13:50)
[2022-05-27] MEDS ORDERED: *HR* Propofol 200 MG/20 ML VIAL IVP ONE ×2 (14:14→14:34)
[2022-05-27] MEDS ORDERED: *HR* FentaNYL (PF) 100 MCG/2 ML VIAL ONE (14:14)
[2022-05-27] MEDS ORDERED: Ondansetron 4 MG/2 ML VIAL ONE (14:14)
[2022-05-27] MEDS ORDERED: *HR* Midazolam HCl 2 MG/2 ML VIAL ONE (14:32)
[2022-05-27] MEDS ORDERED: Ketamine HCL *QUVA* 50mg (1mL) SYRINGE ONE (14:34)
[2022-05-27] MEDS ORDERED: Lidocaine/EPI 1:100k 1% 50 ML VIAL ONE (14:37)
[2022-05-27] MEDS ORDERED: D5% in Water 1,000 ML IVC PRN (15:49)
[2022-05-27] MEDS ORDERED: Dextrose Gel 15 GM/37.5 ML TUBE PO PRN ×2 (15:49)
[2022-05-27] MEDS ORDERED: Melatonin 3 MG TABLET PO PRN (15:49)
[2022-05-27] MEDS ORDERED: Gadolinium Contrast Agent (WT Based) IV PRN (15:49)
[2022-05-27] MEDS ORDERED: Naloxone 0.4 MG/ML INJ IVP PRN (15:49)
[2022-05-27] MEDS ORDERED: *HR* Dextrose 50 % in Water (Syg) 50 ML SYRINGE IVP PRN (15:49)
[2022-05-27] MEDS: Vancomycin 1,750 MG/517.5 ML IV.SOLN IVPB SCH (16:54)
[2022-05-27] MEDS: Magnesium Oxide 400 MG TABLET PO SCH (20:14)
[2022-05-27] MEDS: levoFLOXacin 750 MG/150 ML 750 MG/150 ML BAG IVPB SCH (20:14)
[2022-05-27] MEDS ORDERED: NON-FORMULARY MEDICATION 1 EACH EACH (Melatonin 10 MG Tablet) PO SCH (21:00)
[2022-05-28] MEDS: Acetaminophen 325 MG TABLET PO PRN (01:50)
[2022-05-28] MEDS: Vancomycin 1,750 MG/517.5 ML IV.SOLN IVPB SCH ×2 (03:35→19:30)
[2022-05-28] MEDS ORDERED: Morphine Sulfate 2 MG/ML SYRINGE IVP ONE (04:47)
[2022-05-28] MEDS: Ondansetron ODT 4 MG TAB.RAPDIS SL PRN ×2 (05:01→14:49)
[2022-05-28] MEDS: *HR* Heparin 5,000 UNIT/ML VIAL SQ SCH ×3 (05:02→21:11)
[2022-05-28 05:49] LABS: Hematocrit 35.3 % (37.5-50.1); Hemoglobin 11.5 g/dL (12.9-16.9); Mean Corpuscular HGB Conc 32.6 g/dL (31.6-35.5); Mean Corpuscular Hemoglobin 29.1 pg (28.0-33.3); Mean Corpuscular Volume 89.4 fL (83.0-100.0); Mean Platelet Volume 9.4 fL (9.4-12.4); Platelet Count 368 K/mcL (140-400); Red Blood Count 3.95 M/mcL (4.19-5.50); Red Cell Distribution Width 11.6 % (11.5-14.5); White Blood Count 14.2 K/mcL (4.3-11.1)
[2022-05-28 06:10] LABS: BUN/Creatinine Ratio 17 (6-26); Blood Urea Nitrogen 16 mg/dL (6-20); Calcium 8.7 mg/dL (8.6-10.3); Carbon Dioxide 20 mEq/L (23-29); Chloride 101 mEq/L (98-107); Glucose 255 mg/dL (70-105); Magnesium 1.8 mg/dL (1.6-2.6); Osmolality,Calculated 288 (280-300); Phosphorous 3.7 mg/dL (2.7-4.5); Potassium 4.1 mEq/L (3.5-5.1); Sodium 134 mEq/L (136-145); eGFR For African Americans > 60 (> 60); eGFR For Non-African Americans > 60 (> 60)
[2022-05-28] MEDS: Insulin LISPRO 300 UNITS/3 ML VIAL SUBQ SCH ×4 (06:39→17:40)
[2022-05-28] MEDS ORDERED: Magnesium Sulfate 1 GM/102 ML PIGGYBACK IVPB ONE (07:40)
[2022-05-28] MEDS: Magnesium Oxide 400 MG TABLET PO SCH (07:52)
[2022-05-28] MEDS: MetroNIDAZOLE 500 MG/100 ML 500 MG/100 ML BAG IVPB SCH (07:52)
[2022-05-28] MEDS ORDERED: NON-FORMULARY MEDICATION 1 EACH EACH (Omeprazole 20 MG Tablet.Dr) PO SCH (09:00)
[2022-05-28] MEDS: metroNIDAZOLE 500 MG TABLET PO SCH ×2 (14:47→21:11)
[2022-05-28] MEDS: Vancomycin 2,000 MG/520 ML IV.SOLN IVPB SCH (17:37)
[2022-05-28] MEDS ORDERED: Insulin LISPRO 300 UNITS/3 ML VIAL SUBQ SCH (21:00)
[2022-05-28] MEDS ORDERED: Insulin DETEMIR 100 UNIT/ML X5UNITS SUBQ SCH (21:00)
[2022-05-28] MEDS: levoFLOXacin 750 MG/150 ML 750 MG/150 ML BAG IVPB SCH (21:10)
[2022-05-29 02:08] LABS: Hematocrit 34.4 % (37.5-50.1); Hemoglobin 10.9 g/dL (12.9-16.9); Mean Corpuscular HGB Conc 31.7 g/dL (31.6-35.5); Mean Corpuscular Hemoglobin 28.5 pg (28.0-33.3); Mean Corpuscular Volume 90.1 fL (83.0-100.0); Mean Platelet Volume 9.4 fL (9.4-12.4); Platelet Count 361 K/mcL (140-400); Red Blood Count 3.82 M/mcL (4.19-5.50); Red Cell Distribution Width 11.7 % (11.5-14.5); White Blood Count 10.2 K/mcL (4.3-11.1)
[2022-05-29 02:13] LABS: BUN/Creatinine Ratio 16 (6-26); Blood Urea Nitrogen 14 mg/dL (6-20); Calcium 8.2 mg/dL (8.6-10.3); Carbon Dioxide 23 mEq/L (23-29); Chloride 103 mEq/L (98-107); Glucose 283 mg/dL (70-105); Magnesium 1.8 mg/dL (1.6-2.6); Osmolality,Calculated 291 (280-300); Phosphorous 3.3 mg/dL (2.7-4.5); Potassium 3.9 mEq/L (3.5-5.1); Sodium 135 mEq/L (136-145); eGFR For African Americans > 60 (> 60); eGFR For Non-African Americans > 60 (> 60)
[2022-05-29] MEDS: *HR* Heparin 5,000 UNIT/ML VIAL SQ SCH ×3 (05:26→20:51)
[2022-05-29] MEDS: Vancomycin 2,000 MG/520 ML IV.SOLN IVPB SCH ×2 (05:27→17:02)
[2022-05-29] MEDS: Magnesium Oxide 400 MG TABLET PO SCH (08:15)
[2022-05-29] MEDS: metroNIDAZOLE 500 MG TABLET PO SCH ×3 (08:15→20:48)
[2022-05-29] MEDS: Ondansetron ODT 4 MG TAB.RAPDIS SL PRN ×2 (08:17→20:48)
[2022-05-29] MEDS: Insulin LISPRO 300 UNITS/3 ML VIAL SUBQ SCH ×3 (08:19→20:50)
[2022-05-29] MEDS ORDERED: Insulin LISPRO 300 UNITS/3 ML VIAL SUBQ SCH (11:33)
[2022-05-29] MEDS ORDERED: Metoclopramide 10 MG in 0.9 % Sodium Chloride 50 ML IVPB ONE (14:45)
[2022-05-29] MEDS: levoFLOXacin 750 MG/150 ML 750 MG/150 ML BAG IVPB SCH (20:47)
[2022-05-29] MEDS: Insulin DETEMIR 100 UNIT/ML X5UNITS SUBQ SCH (20:49)
[2022-05-29] MEDS: Acetaminophen 325 MG TABLET PO PRN (21:22)
[2022-05-30 02:20] LABS: Basophils % 0.4 %; Eosinophils # 0.3 K/mcL (0.0-0.6); Eosinophils % 3.5 %; Hematocrit 34.3 % (37.5-50.1); Hematocrit 34.7 % (37.5-50.1); Hemoglobin 11.1 g/dL (12.9-16.9); Hemoglobin 11.2 g/dL (12.9-16.9); Immature Granulocytes % 0.4 % (0-4); Lymphocytes # 1.5 K/mcL (0.6-4.6); Lymphocytes % 20.8 %; Mean Corpuscular HGB Conc 32.7 g/dL (31.6-35.5); Mean Corpuscular Hemoglobin 28.6 pg (28.0-33.3); Mean Corpuscular Hemoglobin 29.3 pg (28.0-33.3); Mean Corpuscular Volume 89.4 fL (83.0-100.0); Mean Corpuscular Volume 89.8 fL (83.0-100.0); Mean Platelet Volume 8.8 fL (9.4-12.4); Monocytes # 0.8 K/mcL (0.0-1.3); Monocytes % 10.8 %; Neutrophils # 4.6 K/mcL (1.6-8.9); Platelet Count 333 K/mcL (140-400); Platelet Count 339 K/mcL (140-400); Red Blood Count 3.82 M/mcL (4.19-5.50); Red Blood Count 3.88 M/mcL (4.19-5.50); Red Cell Distribution Width 11.8 % (11.5-14.5); Red Cell Distribution Width 11.9 % (11.5-14.5); Segmented Neutrophils % 64.1 %; White Blood Count 7.1 K/mcL (4.3-11.1); White Blood Count 7.2 K/mcL (4.3-11.1)
[2022-05-30 02:36] LABS: BUN/Creatinine Ratio 11 (6-26); Blood Urea Nitrogen 10 mg/dL (6-20); Calcium 8.4 mg/dL (8.6-10.3); Carbon Dioxide 25 mEq/L (23-29); Chloride 104 mEq/L (98-107); Glucose 241 mg/dL (70-105); Magnesium 1.7 mg/dL (1.6-2.6); Osmolality,Calculated 289 (280-300); Phosphorous 3.9 mg/dL (2.7-4.5); Potassium 3.9 mEq/L (3.5-5.1); Sodium 136 mEq/L (136-145); eGFR For African Americans > 60 (> 60); eGFR For Non-African Americans > 60 (> 60)
[2022-05-30 02:37] LABS: Alanine Aminotransferase 10 Units/L (7-52); Alkaline Phosphatase 101 Units/L (34-104); Aspartate Amino Transferase 10 Units/L (13-39); BUN/Creatinine Ratio 11 (6-26); Bilirubin,Total 0.3 mg/dL (0.3-1.0); Blood Urea Nitrogen 10 mg/dL (6-20); Calcium 8.5 mg/dL (8.6-10.3); Carbon Dioxide 25 mEq/L (23-29); Chloride 104 mEq/L (98-107); Globulin 3.1 g/dL (2.4-3.5); Glucose 241 mg/dL (70-105); Osmolality,Calculated 289 (280-300); Potassium 3.9 mEq/L (3.5-5.1); Sodium 136 mEq/L (136-145); Total Protein 6.1 g/dL (6.4-8.9); eGFR For African Americans > 60 (> 60); eGFR For Non-African Americans > 60 (> 60)
[2022-05-30] MEDS: *HR* Heparin 5,000 UNIT/ML VIAL SQ SCH ×3 (06:36→21:18)
[2022-05-30] MEDS: Vancomycin 1,500 MG/265 ML IV.SOLN IVPB SCH ×3 (06:36→23:08)
[2022-05-30] MEDS: Insulin LISPRO 300 UNITS/3 ML VIAL SUBQ SCH ×4 (08:12→21:23)
[2022-05-30] MEDS: metroNIDAZOLE 500 MG TABLET PO SCH ×3 (08:16→21:18)
[2022-05-30] MEDS: Ondansetron ODT 4 MG TAB.RAPDIS SL PRN ×3 (08:16→23:08)
[2022-05-30] MEDS: Magnesium Oxide 400 MG TABLET PO SCH (08:16)
[2022-05-30] MEDS: Insulin DETEMIR 100 UNIT/ML X5UNITS SUBQ SCH (21:23)
[2022-05-30] MEDS: levoFLOXacin 750 MG/150 ML 750 MG/150 ML BAG IVPB SCH (21:42)
[2022-05-31 04:52] VITALS: BP 126/50; PULSE 92; TEMP 98.9; O2SAT 98
[2022-05-31] MEDS: *HR* Heparin 5,000 UNIT/ML VIAL SQ SCH ×2 (05:06→14:26)
[2022-05-31 06:02] LABS: BUN/Creatinine Ratio 14 (6-26); Blood Urea Nitrogen 11 mg/dL (6-20); Calcium 8.2 mg/dL (8.6-10.3); Carbon Dioxide 25 mEq/L (23-29); Chloride 102 mEq/L (98-107); Glucose 279 mg/dL (70-105); Osmolality,Calculated 287 (280-300); Potassium 3.8 mEq/L (3.5-5.1); Sodium 134 mEq/L (136-145); eGFR For African Americans > 60 (> 60); eGFR For Non-African Americans > 60 (> 60)
[2022-05-31] MEDS: Vancomycin 1,500 MG/265 ML IV.SOLN IVPB SCH ×2 (06:35→15:34)
[2022-05-31] MEDS: metroNIDAZOLE 500 MG TABLET PO SCH ×2 (08:15→15:58)
[2022-05-31] MEDS: Magnesium Oxide 400 MG TABLET PO SCH (08:15)
[2022-05-31] MEDS: Insulin LISPRO 300 UNITS/3 ML VIAL SUBQ SCH ×3 (08:16→15:37)
[2022-05-31] MEDS: Ondansetron ODT 4 MG TAB.RAPDIS SL PRN ×2 (08:19→16:00)
[2022-05-31] MEDS ORDERED: Insulin DETEMIR 100 UNIT/ML X5UNITS SUBQ SCH ×2 (10:00→21:00)
[2022-05-31] MEDS ORDERED: cefTRIAXone 2,000 MG in 0.9 % Sodium Chloride Mini Bag 100 ML IVPB SCH (14:00)
== END 2022-05-31 16:45 | disposition home or self-care (01) | DRG 710 ==
LOC: 3NENU 13:32 → EMEROOARM 13:32 → 3NENU 18:23 → SUATTDRO 19:03
PROVIDERS: ADMIT Family Medicine; ATTEND Student in an Organized Health Care Education/Training Program

== ENCOUNTER 2022-08-21 16:13 | Inpatient (IN) ==
[2022-08-21] MEDS ORDERED: *HR* OxyCODONE/APAP 5/325 TABLET PO ONE (17:16)
[2022-08-21 17:25] LABS: Basophils # 0.1 K/mcL (0.0-0.2); Basophils % 0.3 %; Eosinophils % 0.1 %; Hematocrit 39.4 % (37.5-50.1); Hemoglobin 13.3 g/dL (12.9-16.9); Immature Granulocytes % 0.5 % (0-4); Lymphocytes # 1.8 K/mcL (0.6-4.6); Lymphocytes % 9.7 %; Mean Corpuscular HGB Conc 33.8 g/dL (31.6-35.5); Mean Corpuscular Hemoglobin 28.7 pg (28.0-33.3); Mean Corpuscular Volume 85.1 fL (83.0-100.0); Monocytes # 1.6 K/mcL (0.0-1.3); Monocytes % 8.3 %; Neutrophils # 15.4 K/mcL (1.6-8.9); Platelet Count 282 K/mcL (140-400); Red Blood Count 4.63 M/mcL (4.19-5.50); Red Cell Distribution Width 12.2 % (11.5-14.5); Segmented Neutrophils % 81.1 %
[2022-08-21 17:44] LABS: BUN/Creatinine Ratio 17 (6-26); Blood Urea Nitrogen 16 mg/dL (6-20); Calcium 8.7 mg/dL (8.6-10.3); Carbon Dioxide 22 mEq/L (23-29); Chloride 97 mEq/L (98-107); Glucose 233 mg/dL (70-105); Osmolality,Calculated 283 (280-300); Sodium 132 mEq/L (136-145)
[2022-08-21] MEDS ORDERED: 0.9 % Sodium Chloride 1,000 ML IVC ONE (17:56)
[2022-08-21] MEDS ORDERED: Melatonin 3 MG TABLET PO PRN (20:16)
[2022-08-21] MEDS ORDERED: Naloxone 0.4 MG/ML INJ IVP PRN (20:16)
[2022-08-21] MEDS ORDERED: Ondansetron ODT 4 MG TAB.RAPDIS SL PRN (20:16)
[2022-08-21] MEDS ORDERED: Acetaminophen 325 MG TABLET PO PRN (20:16)
[2022-08-21] MEDS ORDERED: *HR* Dextrose 50 % in Water (Syg) 50 ML SYRINGE IVP PRN (20:23)
[2022-08-21] MEDS ORDERED: Dextrose Gel 15 GM/37.5 ML TUBE PO PRN ×2 (20:23)
[2022-08-21] MEDS ORDERED: D5% in Water 1,000 ML IVC PRN (20:23)
[2022-08-21] MEDS ORDERED: Vancomycin 500 MG in 0.9 % Sodium Chloride Mini Bag 100 ML IVPB ONE (21:00)
[2022-08-21] MEDS: 0.9 % Sodium Chloride 1,000 ML IVC SCH (21:57)
[2022-08-22] MEDS: Insulin LISPRO 300 UNITS/3 ML VIAL SUBQ SCH ×4 (01:23→18:11)
[2022-08-22 02:44] LABS: Hematocrit 35.7 % (37.5-50.1); Mean Corpuscular HGB Conc 32.5 g/dL (31.6-35.5); Mean Corpuscular Volume 86.2 fL (83.0-100.0); Mean Platelet Volume 9.1 fL (9.4-12.4); Platelet Count 271 K/mcL (140-400); Red Blood Count 4.14 M/mcL (4.19-5.50); Red Cell Distribution Width 12.4 % (11.5-14.5); White Blood Count 17.6 K/mcL (4.3-11.1)
[2022-08-22 02:45] LABS: Hemoglobin 11.6 g/dL (12.9-16.9)
[2022-08-22 02:53] LABS: INR 1.2; Prothrombin Time 13.5 Seconds (9.4-12.1)
[2022-08-22 02:55] LABS: Activated Partial Thrombo Time 32.2 Seconds (26.0-36.0)
[2022-08-22 03:04] LABS: BUN/Creatinine Ratio 15 (6-26); Blood Urea Nitrogen 14 mg/dL (6-20); Calcium 8.3 mg/dL (8.6-10.3); Carbon Dioxide 26 mEq/L (23-29); Chloride 103 mEq/L (98-107); Glucose 100 mg/dL (70-105); Magnesium 2.2 mg/dL (1.6-2.6); Osmolality,Calculated 283 (280-300); Phosphorous 3.1 mg/dL (2.7-4.5); Potassium 3.4 mEq/L (3.5-5.1); Sodium 136 mEq/L (136-145)
[2022-08-22 03:12] LABS: Estimated Average Glucose 177 mg/dl; Hemoglobin A1C 7.8 %
[2022-08-22] MEDS: Vancomycin 1,500 MG/265 ML IV.SOLN IVPB SCH ×2 (06:41→18:06)
[2022-08-22] MEDS: 0.9 % Sodium Chloride 1,000 ML IVC SCH (09:07)
[2022-08-22] MEDS: cefTRIAXone 2,000 MG in 0.9 % Sodium Chloride Mini Bag 100 ML IVPB SCH (09:55)
[2022-08-22] MEDS: *HR* OxyCODONE/APAP 5/325 TABLET PO PRN ×2 (12:41→19:04)
[2022-08-22] MEDS: Ondansetron ODT 4 MG TAB.RAPDIS SL PRN (19:04)
[2022-08-22] MEDS ORDERED: Cefepime HCl 2,000 MG in 0.9 % Sodium Chloride Mini Bag 100 ML IVPB ONE (19:49)
[2022-08-23] MEDS: Insulin LISPRO 300 UNITS/3 ML VIAL SUBQ SCH ×4 (00:52→17:21)
[2022-08-23 01:10] LABS: Basophils # 0.1 K/mcL (0.0-0.2); Basophils % 0.3 %; Eosinophils # 0.3 K/mcL (0.0-0.6); Eosinophils % 1.8 %; Hematocrit 36.6 % (37.5-50.1); Hemoglobin 11.8 g/dL (12.9-16.9); Immature Granulocytes % 0.5 % (0-4); Lymphocytes # 2.2 K/mcL (0.6-4.6); Mean Corpuscular HGB Conc 32.2 g/dL (31.6-35.5); Mean Corpuscular Hemoglobin 28.1 pg (28.0-33.3); Mean Corpuscular Volume 87.1 fL (83.0-100.0); Monocytes # 1.1 K/mcL (0.0-1.3); Monocytes % 7.8 %; Neutrophils # 10.9 K/mcL (1.6-8.9); Platelet Count 294 K/mcL (140-400); Red Cell Distribution Width 12.4 % (11.5-14.5); Segmented Neutrophils % 74.6 %; White Blood Count 14.7 K/mcL (4.3-11.1)
[2022-08-23 01:26] LABS: Alanine Aminotransferase 51 Units/L (7-52); Albumin 3.1 g/dL (3.5-5.7); Albumin/Globulin Ratio 0.9 (1.1-2.2); Alkaline Phosphatase 159 Units/L (34-104); Aspartate Amino Transferase 26 Units/L (13-39); BUN/Creatinine Ratio 16 (6-26); Bilirubin,Total 0.4 mg/dL (0.3-1.0); Blood Urea Nitrogen 13 mg/dL (6-20); Calcium 8.4 mg/dL (8.6-10.3); Carbon Dioxide 24 mEq/L (23-29); Chloride 105 mEq/L (98-107); Globulin 3.3 g/dL (2.4-3.5); Glucose 94 mg/dL (70-105); Osmolality,Calculated 284 (280-300); Potassium 3.5 mEq/L (3.5-5.1); Sodium 137 mEq/L (136-145); Total Protein 6.4 g/dL (6.4-8.9)
[2022-08-23] MEDS: Vancomycin 1,500 MG/265 ML IV.SOLN IVPB SCH (06:21)
[2022-08-23] MEDS: Vancomycin 1,750 MG/517.5 ML IV.SOLN IVPB SCH ×2 (06:23→18:22)
[2022-08-23] MEDS: cefTRIAXone 2,000 MG in 0.9 % Sodium Chloride Mini Bag 100 ML IVPB SCH (09:51)
[2022-08-23] MEDS: *HR* OxyCODONE/APAP 5/325 TABLET PO PRN ×2 (14:13→20:17)
[2022-08-23] MEDS: Ondansetron ODT 4 MG TAB.RAPDIS SL PRN ×2 (14:13→20:17)
[2022-08-24] MEDS: Insulin LISPRO 300 UNITS/3 ML VIAL SUBQ SCH ×4 (01:07→17:53)
[2022-08-24] MEDS: Ondansetron ODT 4 MG TAB.RAPDIS SL PRN ×4 (02:19→20:55)
[2022-08-24] MEDS: *HR* OxyCODONE/APAP 5/325 TABLET PO PRN ×4 (02:20→20:55)
[2022-08-24 03:46] LABS: Basophils % 0.3 %; Eosinophils # 0.2 K/mcL (0.0-0.6); Eosinophils % 2.2 %; Hematocrit 34.7 % (37.5-50.1); Hemoglobin 11.3 g/dL (12.9-16.9); Immature Granulocytes % 0.7 % (0-4); Lymphocytes # 2.4 K/mcL (0.6-4.6); Mean Corpuscular HGB Conc 32.6 g/dL (31.6-35.5); Mean Corpuscular Hemoglobin 28.3 pg (28.0-33.3); Mean Platelet Volume 8.8 fL (9.4-12.4); Monocytes # 0.7 K/mcL (0.0-1.3); Monocytes % 8.2 %; Neutrophils # 5.7 K/mcL (1.6-8.9); Platelet Count 294 K/mcL (140-400); Red Blood Count 3.99 M/mcL (4.19-5.50); Red Cell Distribution Width 12.5 % (11.5-14.5); Segmented Neutrophils % 62.6 %; White Blood Count 9.1 K/mcL (4.3-11.1)
[2022-08-24] MEDS: Vancomycin 1,750 MG/517.5 ML IV.SOLN IVPB SCH ×2 (06:42→17:54)
[2022-08-24] MEDS: cefTRIAXone 2,000 MG in 0.9 % Sodium Chloride Mini Bag 100 ML IVPB SCH (09:00)
[2022-08-24] MEDS ORDERED: Iopamidol - 370 500 ML MLS IVP ONE (12:05)
[2022-08-24] MEDS: Nicotine 21 MG PATCH.TD24 TD SCH (13:44)
[2022-08-24] MEDS ORDERED: Insulin LISPRO 300 UNITS/3 ML VIAL SUBQ SCH (17:00)
[2022-08-24 23:37] VITALS: O2SAT 97
[2022-08-25] MEDS: Insulin LISPRO 300 UNITS/3 ML VIAL SUBQ SCH ×2 (00:42→06:49)
[2022-08-25 04:53] LABS: BUN/Creatinine Ratio 12 (6-26); Blood Urea Nitrogen 8 mg/dL (6-20); Calcium 8.1 mg/dL (8.6-10.3); Carbon Dioxide 23 mEq/L (23-29); Chloride 106 mEq/L (98-107); Glucose 121 mg/dL (70-105); Osmolality,Calculated 288 (280-300); Potassium 3.7 mEq/L (3.5-5.1); Sodium 139 mEq/L (136-145)
[2022-08-25] MEDS: *HR* OxyCODONE/APAP 5/325 TABLET PO PRN ×2 (05:20→12:16)
[2022-08-25] MEDS: Ondansetron ODT 4 MG TAB.RAPDIS SL PRN ×2 (05:20→12:16)
[2022-08-25] MEDS: Vancomycin 1,750 MG/517.5 ML IV.SOLN IVPB SCH (05:22)
[2022-08-25 07:08] VITALS: TEMP 97.4
[2022-08-25] MEDS ORDERED: Loratadine 10 MG TABLET PO SCH (09:00)
[2022-08-25] MEDS: Nicotine 21 MG PATCH.TD24 TD SCH (09:17)
[2022-08-25] MEDS: cefTRIAXone 2,000 MG in 0.9 % Sodium Chloride Mini Bag 100 ML IVPB SCH (09:19)
[2022-08-25 10:46] VITALS: BP 129/89; PULSE 100
[2022-08-25] MEDS ORDERED: *HR* Enoxaparin 100 MG/ML SYRINGE SQ SCH (18:00)
[2022-08-30] MEDS ORDERED: Cholecalciferol (D-3) 1,000 UNIT (25MCG) TABLET PO SCH (09:00)
== END 2022-08-25 13:20 | disposition home or self-care (01) | DRG 380 ==
LOC: 3NENU 16:13 → EMEROOARM 16:13 → SUATTDRO 20:24 → 3NENU 21:19
PROVIDERS: ADMIT Internal Medicine; ATTEND Nurse Practitioner